=== PATIENT | male | born 1995 | race Caucasian/White ===

== ENCOUNTER 2023-10-29 07:33 | Outpatient (REF) | payer OTHER, SELFPAY ==
[2023-10-29 10:32] LABS: Alanine Aminotransferase 16 U/L (0-40); Albumin Level 4.3 g/dL (3.5-5.0); Alkaline Phosphatase 35 U/L (39-117); Anion Gap 15 (12-20); Aspartate Amino Transferase 17 U/L (5-37); Bilirubin Total 0.8 mg/dL (0.0-1.0); Blood Urea Nitrogen 10 mg/dL (9-16); Calcium 9.2 mg/dL (8.4-10.2); Carbon Dioxide 24 mmol/L (22-29); Chloride 107 mmol/L (96-108); Estimated Glomerular Filt Rate > 60; Glucose Fasting 82 mg/dL (60-99); Potassium 3.7 mmol/L (3.3-5.1); Sodium 142 mmol/L (135-145)
== END 2023-10-29 07:34 | disposition home or self-care (01) ==
LOC: HO.LAB 07:33
PROVIDERS: PCP Physician Assistant; Visit Provider Physician Assistant
DX: Z13.1 Encounter for screening for diabetes mellitus (principal)
CPT/HCPCS: 36415; 80053

== ENCOUNTER 2024-06-12 09:38 | Outpatient (REF) | payer MEDICAID, SELFPAY ==
[2024-06-12 11:41] LABS: Alanine Aminotransferase 19 U/L (0-40); Albumin Level 4.2 g/dL (3.5-5.0); Alkaline Phosphatase 38 U/L (39-117); Aspartate Amino Transferase 15 U/L (5-37); Bilirubin Direct 0.2 mg/dL (0.0-0.5); Bilirubin Total 0.5 mg/dL (0.0-1.0); Total Protein 6.9 g/dL (6.5-8.0)
[2024-06-12 11:56] LABS: HBS Num1 45.43 mIU/mL (0-7.99); HBc Num1 0.19 S/CO (0.00-0.79); HBsAGNum1 0.32 S/CO (0.00-0.99); Hepatitis B Core Antibody Nonreactive (Nonreactive); Hepatitis B Surface Antigen Negative (Negative); ~Hepatitis B Surface Antibody REACTIVE (Nonreactive)
[2024-06-12 11:57] LABS: Hepatitis A Antibody IgG REACTIVE (Nonreactive); ~Hepatitis A Antibody IgG 8.79 S/CO (0.00-0.99)
== END 2024-06-12 09:39 | disposition home or self-care (01) ==
LOC: HO.HHCL 09:38
PROVIDERS: Visit Provider Nurse Practitioner Primary Care
DX: Z00.00 Encounter for general adult medical examination without abnormal findings (principal); Z11.3 Encounter for screening for infections with a predominantly sexual mode of transmission
CPT/HCPCS: 36415; 80076; 86704; 86706; 86708; 87340

== ENCOUNTER 2024-06-18 09:24 | Outpatient (REF) | payer MEDICAID, SELFPAY ==
[2024-06-18 13:14] LABS: Syphilis Screen Nonreactive (Nonreactive)
[2024-06-18 13:37] LABS: ~HepC Num1 0.12 S/CO (0.00-0.79); ~Hepatitis C Antibody Nonreactive (Nonreactive)
[2024-06-20 08:14] LABS: HIV RNA PCR Qn Copies NOT DETECTED copies/mL (NOT DETECTED); HIV RNA PCR Qn Log Copies NOT DETECTED (NOT DETECTED)
== END 2024-06-18 09:25 | disposition home or self-care (01) ==
LOC: HO.HHCL 09:24
PROVIDERS: Visit Provider Nurse Practitioner Primary Care
DX: Z79.899 Other long term (current) drug therapy (principal)
CPT/HCPCS: 36415; 86780; 86803; 87536

== ENCOUNTER 2024-07-20 09:43 | Outpatient (REF) | payer MEDICAID, SELFPAY ==
[2024-07-23 14:18] LABS: HIV RNA PCR Qn Copies NOT DETECTED copies/mL (NOT DETECTED); HIV RNA PCR Qn Log Copies NOT DETECTED (NOT DETECTED)
== END 2024-07-20 09:44 | disposition home or self-care (01) ==
LOC: HO.CHCLDS 09:43
PROVIDERS: Visit Provider Nurse Practitioner Primary Care
DX: Z11.4 Encounter for screening for human immunodeficiency virus [HIV] (principal); Z79.899 Other long term (current) drug therapy
CPT/HCPCS: 36415; 87536

== ENCOUNTER 2024-09-14 08:10 | Outpatient (REF) | payer MEDICAID, SELFPAY ==
[2024-09-14 11:31] LABS: Albumin Level 4.5 g/dL (3.5-5.0); Anion Gap 12 (12-20); Aspartate Amino Transferase 22 U/L (5-37); Bilirubin Total 0.5 mg/dL (0.0-1.0); Blood Urea Nitrogen 22 mg/dL (9-16); Calcium 9.4 mg/dL (8.4-10.2); Carbon Dioxide 26 mmol/L (22-29); Chloride 106 mmol/L (96-108); Cholesterol 190 mg/dL (<200); Estimated Glomerular Filt Rate > 60; Glucose Random 95 mg/dL (60-115); HDL Cholesterol 50 mg/dL (>40); LDL Cholesterol Calculated 127 mg/dL (<100); Potassium 4.1 mmol/L (3.3-5.1); Sodium 140 mmol/L (135-145); Total Protein 7.5 g/dL (6.5-8.0); Triglycerides 69 mg/dL (<150)
[2024-09-14 11:33] LABS: Estimated Average Glucose 103 mg/dL; Hemoglobin A1C 120.7077 umol/L; Hemoglobin A1c % 5.2 % (<6.0); Total Hemoglobin (HGBA1C) 3566.0594 umol/L
[2024-09-14 11:45] LABS: HIV AB/AG Nonreactive (Nonreactive); HIV Num 1 0.07 S/CO (0.00-0.99)
[2024-09-14 12:14] LABS: Alanine Aminotransferase 25 U/L (0-40); Alkaline Phosphatase 42 U/L (39-117)
[2024-09-16 07:08] LABS: HIV RNA PCR Qn Copies NOT DETECTED copies/mL (NOT DETECTED); HIV RNA PCR Qn Log Copies NOT DETECTED (NOT DETECTED)
== END 2024-09-14 08:11 | disposition home or self-care (01) ==
LOC: HO.HHCL 08:10
PROVIDERS: Visit Provider Nurse Practitioner Primary Care
DX: Z00.00 Encounter for general adult medical examination without abnormal findings (principal); Z13.220 Encounter for screening for lipoid disorders; Z13.1 Encounter for screening for diabetes mellitus; Z79.899 Other long term (current) drug therapy
CPT/HCPCS: 36415; 80053; 80061; 83036; 87389; 87536

== ENCOUNTER 2024-10-10 14:08 | Outpatient (REF) | payer MEDICAID, SELFPAY ==
[2024-10-11 08:10] LABS: Syphilis Screen Nonreactive (Nonreactive)
== END 2024-10-10 14:09 | disposition home or self-care (01) ==
LOC: HO.HHCL 14:08
PROVIDERS: Visit Provider Nurse Practitioner Primary Care
DX: Z79.899 Other long term (current) drug therapy (principal)
CPT/HCPCS: 36415; 86780; 87536

== ENCOUNTER 2024-11-12 09:17 | Outpatient (REF) | payer MEDICAID, SELFPAY ==
--- OUTSIDE RECORDS SUMMARY | 2024-11-12 09:53 | XMS_ITS | Encounter Summary ---
Author Organization [employer] Address [address] [place] [address] Care Team Providers Care Marina Dry Dock Manager Name Role Phone Autumn Lainez HILARY Primary Care Provider [phone] Reason for Visit * Reason Comments [facility] Recovery Supports Encounter Details Date Type Department Care Team ([facility] st Contact Info) Description 11/06/2024 Patient Outreach [facility] MEDICINE [address] [place], [place] [phone] Xander Arteaga [address] [place] [address] Recovery Supports Social History Tobacco Use Types Packs/Day Years Used Date Smoking Tobacco: Never Alcohol Answer Date Recorded Frequency of Alcohol Consumption Not on file 06/14/2024 Average Number of Drinks Not on file 024 Frequency of Binge Drinking Not on file 06/03 Score 0 06/14/2024 Depression Answer Date Recorded Patient Health Questionnaire-9 Score 16 08/21/2024 Patient Health Questionnaire-9 Score 16 08/21/2024 Last PHQ-9: Questionnaire Data Not on file 1 10/21/2023 Housing Stability Answer Date Recorded What is your housing situation today? I have housing today, but I am worried about losing housing in the future 06/08/[address] you li ve. Do you have problems with any of the following? I am not sure 06/08/2024 Food Insecurity Answer Date Recorded Within the past 12 months, y ou worried that your food would run out before you got money to buy more: Never True 2023 Within the past 12 months,th e food you bought just didn't last and you didn't have enough money to get more: Sometimes True 06/08/2024 Transportation Answer Date Recorded In the past 12 months, has l ack of transportation kept you from medical appts, meetings, work or from getting things needed for daily living? No 06/08/2024 Utilities Answer Date Recorded In the past 12 months, has t he electric, gas, oil or water company threatened to shut off services in your home? No 06/08/2024 Depression Answer Date Recorded Patient Health Questionnaire-2 Score 1 08/21/2024 Internet Access Answer Date Recorded Internet Access Q1 Yes 06/08/2024 Internet Access Q2 Not on file 06/08/2024 Sex and Gender Information Value Date Recorded Sex Assigned at Male 08/02/2022 10:16 AM EDT Legal Sex Male 10:16 AM EDT Gender Identity Male 11/09/2023 9:27 AM EST Sexual Orientation Straight 11/09/2023 9: 27 AM EST documented as of this encounter Progress Notes * Xander Arteaga - 11/06/2024 4:27 PM EST I met with Al today. Setting: in person at [facility] Recovery Wellness Goals worked on: Social Stability Action taken/next steps: Attended recovery support group Additional comments: Participant attended a group session centered on recovery topics, where members engaged in open discussion and offered mutual support Xander Arteaga documented in this encounter Plan of Treatment Upcoming Encounters Date Type Department Care Team (Late st Contact Info) Description 11/30/2024 1:00 PM EST Office Visit [facility] MEDICINE [address] [place] [phone] Autumn Lainez ANP [address] [place] [phone] 12/27/2024 9:00 AM EDT Clinical Support [facility] MEDICINE [address] [place] [phone] Alissa Light, RODO [address] [place] [address] documented as of this encounter Visit Diagnoses Not on filedocumented in this encounter Additional Health Concerns Assessment Noted Time PHQ-9 Depression Total Score: 16 024 2:08 PM EST documented as of this encounter Care Teams Marina Dry Dock Manager Relationship Specialty Start Date End Date Autumn Lainez ANP [address] [place] [address] PCP - General Family Medicine 08/17/24 documented as of this encounter
--- OUTSIDE RECORDS SUMMARY | 2024-11-12 09:53 | XMS_ITS | Encounter Summary ---
Author Organization [employer] Address [address] [place] [address] Care Team Providers Care Human Resources Training Manager Name Role Phone Autumn Lainez HILARY Primary Care Provider [phone] Reason for Visit * Reason Comments [facility] Recovery Supports Encounter Details Date Type Department Care Team (Late st Contact Info) Description 10/15/2024 Patient Outreach [facility] MEDICINE [address] [place] [address] Jasvir Morgan Recovery Supports Social History Tobacco Use Types [...] as of this encounter Progress Notes * Jasvir Morgan - 10/15/2024 3:37 PM EST I met with Al today. Setting: in person at [facility] Recovery Wellness Goals worked on: Social Stability Action taken/next steps: Offered person centered recovery support and Attended alcohol and drug free activity Additional comments: Today, the participant Al Putnam was at the center, interacting with other participants while having coffee and snacks. Jasvir Morgan documented in this encounter Plan of Treatment Upcoming Encounters Date Type Department Care Team (Late st Contact Info) Description 11/30/2024 1:00 PM EST Office Visit [facility] MEDICINE [address] [place] [phone] Autumn Lainez ANP [address] [place] [address] 12/27/2024 9:00 AM EDT Clinical Support [facility] MEDICINE [address] [place] [phone] Alissa Light, RODO [address] [place] [address] documented as of this encounter Visit Diagnoses Not on filedocumented in this encounter Additional Health Concerns Assessment Noted Time PHQ-9 Depression Total Score: 16 024 2:08 PM EST documented as of this encounter Care Teams Human Resources Training Manager Relationship Specialty Start Date End Date Autumn Lainez ANP [address] [place] [address] PCP - General Family Medicine 08/17/24 documented as of this encounter
--- OUTSIDE RECORDS SUMMARY | 2024-11-12 09:53 | XMS_ITS | Clinical Summary ---
Author Organization [employer] Address [address] [place] [address] [address] [place] [address] Care Team Providers Care Batch Tester Name Role Phone Autumn Lainez HILARY Primary Care Provider [phone] Allergies No known active allergies Medications * This document contains information received from the source organization and may not represent a complete record from that organization. Cabotegravir ER 600 MG/3ML Suspension Extended ReleaseIndicati ons:On pre-exposure prophylaxis for HIV Inject 600 mg into the muscle See administration instructions. Ventrogluteal Every other month 3 mL 5 07/20/20 24 Active ARIPiprazole (Abilify) 10 MG tabletIndicatio ns:Bipolar affective disorder in remission (CMS/HCC) Take 1 tablet (10 mg) by mouth Once per day. 30 tablet 1 10/09/19 25 025 Active hydrOXYzine pamoate (Vistaril) 25 MG capsuleIndicati ons:ANDRES (generalized anxiety disorder) Take 1 capsule (25 mg) by mouth if needed in the morning and at bedtime for anxiety. May take the 2 caps at bedtime. 60 capsule 1 10/09/19 25 025 Active Hospital, Clinic, or Other Facility Administered Medication Ordered Dose Route Frequency Start Date End Date Status Cabotegravir ER Suspension Extended Release 600 mgIndications:On pre-exposure prophylaxis for HIV 600 mg IM Once 11/12/2024 11/12/2024 Ended Active Problems Problem Noted Date Diagnosed Date parveen 08/23/2024 Assessment & Plan (08/23/2024 1:18 PM EST): Has a longitudinal ridges on right thumb. 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 -see image in chart. -recommended monitoring for any skin changes surrounding the thumb to return for reevaluation. . Bipolar affective disorder in remission 08/17/20 Recurrent major depressive disorder, in partial remission 05/16/2024 ANDRES (generalized anxiety disorder) 05/16/2024 History of substance use disorder 05/16/2024 Stress 04/24/2024 Encounters * This document contains information received from the source organization and may not represent a complete record from that organization. Date Type Department Care Team Description 11/12/2024 9:00 AM EST Clinical Support [facility] [place] [address] Alissa Light, RODO On pre-exposure prophylaxis for HIV 11/12/2024 Travel 11/06/2024 1:45 PM EST Office Visit [facility] [place] [address] Rosario Sanchez MD ANDRES (generalized anxiety disorder) (Primary Dx); Bipolar affective disorder in remission (CMS/HCC) 11/06/2024 Patient Outreach [facility] [place] [address] Xander Arteaga Recovery Supports 11/06/2024 Travel 10/30/2024 Patient Outreach [facility] [place] [address] Timur Prince Recovery Supports 10/29/2024 Patient Outreach [address] [address] Xander Arteaga Recovery Supports 10/29/2024 Patient Outreach [address] [address] Autumn Lainez ANP Care Coordination ([facility] Sydnee Guillory telephone call outreach) 10/26/2024 Patient Outreach [facility] [place] [address] Sammy Tyson Recovery Supports 10/23/2024 2:15 PM EST Office Visit [facility] [place] [address] Rosario Sanchez MD Bipolar affective disorder in remission (CMS/HCC) (Primary Dx); Stress 10/23/2024 Travel 10/16/2024 Patient Outreach [facility] [place] [address] Xander Arteaga RC Recovery Supports 10/15/2024 Patient Outreach [facility] [address] [place] [address] Jasvir Morgan Recovery Supports 10/12/2024 Patient Outreach [facility] [address] [place] [address] Autumn Lainez ANP Care Coordination ([facility] Sydneejody Lanierz telephone all outreach) 10/10/2024 Orders Only [facility] [place] [address] Autumn Lainez ANP 10/09/2024 2:15 PM EST Office Visit [facility] [place] [address] Rosario Sanchez MD Bipolar affective disorder in remission (CMS/[facility]) (Primary Dx) 10/09/2024 Patient Outreach [facility] [place] [address] Timur Prince RC Support Groups 10/09/2024 Travel 10/08/2024 Patient Outreach [facility] [place] [address] Jose Álvarez Recovery Supports 10/05/2024 Patient Outreach [facility] [place] [address] Jose Álvarez Recovery Supports 10/04/2024 10:00 AM EST Office Visit [facility] [place] [address] Socorro Rasmussen MD Stress (Primary Dx) 10/04/2024 Patient Outreach [facility] [place] [address] Xander Arteaga RC Recovery Supports 10/04/2024 Patient Outreach [facility] [place] [address] Jose Álvarez Recovery Supports 10/04/2024 Travel 10/02/2024 Patient Outreach [facility] [address] [place] [address] Jasvir Morgan Recovery Supports 10/01/2024 Patient Outreach [facility] [address] [place] [address] Jasvir Morgan RC Recovery Supports 10/01/2024 Telephone [facility] [place] [address] Delmy Mensah MA November10/01/2024 Patient Outreach [facility] [address] [facility] [place] [address] Sammy Tyson RC Recovery Supports 09/28/2024 [address]reach [address] [place] [address] Sammy Tyson RC Recovery Supports 09/27/2024 Patient Outreach [address] [place] [address] Autumn Lainez ANP Care Coordination ([facility] Sydnee Guillory telephone call outreach) 09/21/2024 Telephone [facility] [place] [address] Garcia Meza RN 09/20/2024 Patient Outreach [address] [place] [address] Jose Álvarez RC Recovery Supports 09/19/2024 9:00 AM EST Office Visit [facility] [place] [address] Shawn Calzada MD Alcohol use disorder (Primary Dx); Cocaine use disorder (CMS/HCC) 09/19/2024 Travel 09/18/2024 Patient Outreach [facility] [place] [address] Xander Arteaga RC Recovery Supports 09/18/2024 Patient Outreach [facility] [place] [address] Jasvir Morgan RC Recovery Supports 09/17/2024 9:45 AM EST Office Visit [facility] [place] [address] Socorro Rasmussen MD Stress (Primary Dx) 09/17/2024 Patient Outreach [address] [address] Jasvir Morgan RC Recovery Supports 09/17/2024 Travel 09/14/2024 9:00 AM EST Clinical Support [facility] [place] [address] Garcia Meza, RN On pre-exposure prophylaxis for HIV 09/14/2024 Patient Outreach [facility] [address] Timur Prince 09/14/2024 Travel 09/13/2024 Patient Outreach [facility] [place] [address] Sammy Tyson Recovery Supports 09/12/2024 9:00 AM EST Office Visit [facility] [place] [address] Shawn Calzada MD Cocaine use disorder (CMS/HCC) (Primary Dx); Alcohol use disorder 09/12/2024 Travel 09/11/2024 [address] Outreach [address] [place] [address] Sammy Tyson Recovery Supports 09/11/2024 Patient Outreach [address] [address] Jose Álvarez RC Recovery Supports 09/10/2024 Patient Outreach [address] [address] Xander Arteaga Recovery Supports 09/07/2024 Patient Outreach [address] [address] Sammy Tyson Recovery Supports 09/06/2024 9:00 AM EST Office Visit [facility] [place] [address] Socorro Rasmussen MD Stress (Primary Dx) 09/06/2024 Refill [facility] [place] [address] Autumn Lainez ANP On pre-exposure prophylaxis for HIV 09/06/2024 Patient Outreach [address] [address] Autumn Lainez ANP Care Coordination ([facility] Sydnee Guillory telephone call outreach ) 09/06/2024 Patient Outreach [address] [address] Sammy Tyson 09/05/2024 9:00 AM EST Clinical Support [address] [address] Nicolle Mtz, RODO History of substance use disorder 09/05/2024 Patient Outreach [address] [address] Timur Prince 09/05/2024 Travel 09/04/2024 1:45 PM EST Office Visit [address] [address] Rosario Sanchez MD Stress (Primary Dx) 09/04/2024 Travel 09/04/2024 Patient Outreach [facility] [address] [place] [address] Xander Arteaga 09/03/2024 Patient Outreach [address] [address] Jasvir Morgan 08/29/2024 9:00 AM EST Clinical Support [address] [address] Liudmila Nielsen, RODO History of substance use disorder 08/29/2024 Travel 08/28/2024 Patient Outreach [address] [address] Xander Arteaga 08/24/2024 Patient Outreach [address] [address] Jasvir Mogran 08/23/2024 1:20 PM EST Office Visit [facility] [address] [place] [address] Kenya Fry MD Melanonychia striata (Primary Dx) 08/23/2024 Patient Outreach [address] [address] Jose Álvarez 08/22/2024 9:00 AM EST Office Visit [address] [address] Shawn Calzada MD Alcohol use disorder (Primary Dx); Cocaine use disorder (CMS/HCC) 08/22/2024 Travel 08/21/2024 Patient Outreach [address] [address] Timur Prince 08/20/2024 Patient Outreach [facility] [address] [place] [address] Jasvir Morgan 08/20/2024 Patient Outreach [facility] [place] [address] Xander Arteaga 08/17/2024 10:15 AM EST Office [address] [place] [address] Autumn Lainez ANP On pre-exposure prophylaxis for HIV (Primary Dx); Bipolar affective disorder in remission (CMS/HCC); Recurrent major depressive disorder, in partial remission (CMS/HCC); ANDRES (generalized anxiety disorder); History of substance use disorder; Healthcare maintenance; Lipid screening; Screening for diabetes mellitus 08/17/2024 Patient Outreach [address] [place] [address] Jose Álvarez 08/17/2024 Travel 08/16/2024 9:00 AM EST Office Visit [address] [place] [address] Socorro Rasmussen MD Stress (Primary Dx) 08/16/2024 Patient Outreach [address] [place] [address] Jasvir Morgan 08/16/2024 Travel 08/15/2024 9:00 AM EST Office Visit [facility] [place] [address] Shawn Calzada MD Cocaine use disorder (CMS/HCC) (Primary Dx); Alcohol use disorder 08/15/2024 Patient Outreach [facility] [place] [address] Sydnee Guillory Care Coordination ([facility] Sydnee Guillory telephone call outreach ) 08/15/2024 Travel 08/14/2024 9:00 AM EST [address] [facility] [address] Socorro Rasmussen MD Stress (Primary Dx) 08/14/2024 Patient Outreach [address] [address] Timur Prince 08/14/2024 Travel 08/13/2024 9:00 AM EST Office Visit [address] [address] Socorro Rasmussen MD Stress (Primary Dx) 08/13/2024 Patient Outreach [facility] [address] [place] [address] Xander Arteaga 08/13/2024 Travel from Last 3 Months Immunizations Name Administration Dates Next Due DTP 10/02/1994, 4,1993,08/02 DTaP, 5 pertussis antigens 07/02/1998 HPV, Quadrivalent 08/20/2013,04/17/2013,02/15/20 13 Hep A, Adult 12/05/2015,06/07/2015 Hep A, ped/adol, 2 dose 04/03/2014 Hep B, Adolescent or Pediatric 1993,1992,1993 Hep B, adult 07/07/2015,06/07/2015 Hib (PRP-T) 06/02/1994, 4,1993,08/02 IPV 07/02/1998, 4,1993,08/02 Influenza injectable quadriv alent preservative free 11/22/2023,12/02/2020 Influenza, IIV3, injectable 07/28/2016,0 07/01/2009,11/28/2008,10/27,10/12/2006 Influenza, Split (incl. les fied surface antigen) 09/06/2011 Influenza, live, intranasal 06/03/2010 Influenza, seasonal, injecta ble, preservative free 06/28/2024 MMR 07/02/1998,06/02/1994 Meningococcal MCV4P ACYW-135 10/27/2007 Novel [id number], all formulations 10/29/2009 Pfizer Covid-19 Vaccine 12+ 06/28/2024, Pneumococcal Polysaccharide PPSV23 04/28/2018 TD (adult), 2 Lf tetanus tox oid, preservative free, adsorbed 03/25/2004 Tdap 05/09/2018,12/22/2015,12/10/2008 Varicella 12/10/2008,12/31/1997 Social History Tobacco Use Types Packs/Day Years Used Date Smoking Tobacco: Never Tobacco Cessation:Counseling Given: Not Answered Alcohol Answer Date Recorded Frequency of Alcohol Consumption Not on file 06/14/2024 Average Number of Drinks Not on file Frequency of Binge Drinking Not on file [...] Orientation Straight 11/09/2023 9: 27 AM EST Last Filed Vital Signs Vital Sign Reading Time Taken Comments Blood Pressure 116/80 08/23/2024 1:10 PM EST Pulse 71 08/23/2024 1:10 PM EST Temperature 37.4 ??C (99.4 ??F) 08/23/2024 1:10 PM ES T Respiratory Rate 18 08/23/2024 1:10 PM EST Oxygen Saturation 99% 08/17/2024 10:27 AM EST Inhaled Oxygen Concentration - - Weight 90.5 kg (199 lb 9.6 oz) 08/23/2024 1:10 P M EST Height - - Body Mass Index - - Plan of Treatment Upcoming Encounters Date Type Department Care Team (Late st Contact Info) Description 11/30/2024 1:00 PM EST Office Visit [facility] [address] [place] [address] Autumn Lainez, HILARY [address] [place] [address] 12/27/2024 9:00 AM EDT Clinical Support [facility] [address] [place] [address] Alissa Light, RN [address] [place] [address] Health Maintenance Due Date Last Done Comments Family Planning (PISQ) 02/29/2008 Pneumococcal Vaccine: Pediatrics (0 to 5 Years) and At-Risk Patients (6 to 49) Years) (2 of 2 - PCV) 04/28/2019 04/28/2018 Depression Monitoring (PHQ-9) 02/18/2025 08/21/2024, 08/21/2024 SDOH Screening 06/08/2025 06/08/2024 Alcohol/Substance Use Screening 06/14/2025 06/14/2024 Depression Screening 08/21/2025 08/21/2024, 08/21/20 24 Tobacco Screening 11/06/2025 11/06/2024 DTaP/Tdap/Td Vaccines (9 - Td or Tdap) 05/09/2028 05/09/2018, 12/22/2015, 12/10/2008, Additional history exists Zoster Vaccines (1 of 2) 2043 RSV Patients and Patients Aged 60 years or older (1 - 1-dose 75+ series) 02/29/2068 HIB Vaccines Completed 06/02/1994, 12/03, 1993, Additional history exists IPV Vaccines Completed 07/02/1998, 12/03, 1993, Additional history exists Meningococcal Vaccine Aged Out 10/27/2007 No bahman kenny eligible based on patient's age to complete this topic HPV Vaccines Completed 08/20/2013, 04/02, 02/14/2013 Hepatitis B Vaccines Completed 07/07/2015, 06/07/2015, 1993, Additional history exists Hepatitis A Vaccines Completed 12/05/2015, 06/07/2015, 04/03/2014 Hepatitis C Screening Completed 06/18/2024 COVID-19 Vaccine Completed 06/28/2024, 11/22/2023 Influenza Vaccine Completed 06/28/2024, , 12/02/2020, Additional history exists HIV Screening Completed 10/10/2024, 09/02, 09/14/2024, Additional history exists RSV under 20 months Aged Out No longe r eligible based on patient's age to complete this topic Rotavirus Vaccines Aged Out No longer eligible based on patient's age to complete this topic Procedures Procedure Name Priority Date/Time Associated Diagnosis Comments POCT RAPID HIV SCREENING Routine 11/12/2024 9:51 AM EST On pre-exposure prophylaxis for HIV HIV 1 RNA, QUANTITATIVE REAL TIME PCR Routine 10/10/2024 2:10 PM EST SYPHILIS SCREEN Routine 10/10/2024 2:10 PM EST POCT RAPID HIV SCREENING Routine 09/14/2024 8:57 AM EST On pre-exposure prophylaxis for HIV HIV 1 RNA, QUANTITATIVE REAL TIME PCR Routine 09/14/2024 8:12 AM EST On pre-exposure prophylaxis for HIV HIV 1/2 ANTIGEN/ANTIBODY, FOURTH GENERATION W/RFL Routine 09/14/2024 8:12 AM EST On pre-exposure prophylaxis for HIV HEMOGLOBIN A1C Routine 09/14/2024 8:12 AM EST Screening for diabetes mellitus COMPREHENSIVE METABOLIC PANEL Routine 09/14/2024 8:12 AM EST Healthcare maintenance LIPID PANEL, STANDARD Routine 09/14/2024 8:12 AM EST Lipid screening CHLAMYDIA/GONORRHEA - URINE ([facility]) Routine 09/14/2024 HEPATITIS C AB W/REFL TO HCV RNA, QN, PCR Routine 06/18/2024 9:30 AM EDT from Last 3 Months or Most Recently Relevant to Health Maintenance Results * POCT RAPID HIV SCREENING (11/12/2024 9:51 AM EST) Only the most recent of2 resultswithin the time period is included. Blood 11/12/2024 9:51 AM EST Narrative Alissa Light RN - 11/12/2024 9:51 AM EST negative Shawn Calzada MD POINT OF CARE TEST ENTER/EDIT OR DERABLES Final Result * Syphilis Screen (10/10/2024 2:10 PM EST) Syphilis Screen Nonreactive Nonreactive [facility] 10/10/2024 2:10 PM EST 10/10/2024 4:04 PM EST Autumn RICHARD LAB BLOOD ORDERABLES Final Resul t [facility] [address] [place] [address] [phone] * HIV-1 RNA, Quantitative, Real-Time PCR (10/10/2024 2:10 PM EST) Only the most recent of2 resultswithin the time period is included. HIV RNA PCR Qn Copies TNP copies/mL [facility] Comment:TEST NOT PERFORMEDNo suitable specimen received.Please review the testrequirements [email or web address] TEST WAS PERFORMED AT:[employer] [place] [phone] MILLER MD HIV RNA PCR Qn Log Copies TNP [facility] 10/10/2024 2:10 PM EST 10/10/2024 4:04 PM EST Autumn Lainez [facility] LAB BLOOD ORDERABLES Final Resul t Performing Organization Address [facility]/ZIP Co de Phone Number [facility] [address] [place] [address] [phone] * HIV-1/2 Antigen and Antibodies, Fourth Generation, with Reflexes (09/14/2024 8:12 AM EST) HIV AB/AG Nonreactive Nonreactive [facility] Comment:HIV-1 p24 Ag and/or HIV-1/HIV-2 Ab not detected.A test result that is nonreactive does not exclude thepossibility of exposure to or infection with HIV-1 and/orHIV-2. Nonreactive results in this assay for individualswith prior exposure to HIV-1 and/or HIV-2 may be due toantigen and antibody levels that are below the limit ofdetection of this assay.[facility] HIV Ag/Ab Combo assay result andsupplemental assay results should be interpreted inconjunction with the patient's clinical presentation,history and other laboratory results. If the results areinconsistent with clinical evidence, additional testing issuggested to confirm the result. Blood Venous blood specimen / Unknown 09/14/2024 8:12 AM EST 09/14/2024 11:04 AM EST Autumn Lainez [facility] LAB BLOOD ORDERABLES Final Resul t [facility] [address] [place] [address] [phone] * Hemoglobin A1c (09/14/2024 8:12 AM EST) Hemoglobin A1c 5.2 <6.0 % [facility] Comment:Hemoglobin A1C Refer ence Range Adults: 4.8 - 6.0 % Non diabetic: < 6.0 % Goal: < 7.0 %Additional Action Suggested: > 8.0 %Note: Hemoglobin A1c results are invalid for patients with abnormal amounts of HbF. Blood transfusions may impact the HbA1c concentration in the patient sample. Estimated Average Glucose 103 mg/dL [facility] Comment:eAG = Estimated ave rage glucose which is %A1C expressed asaverage glucose, using the formula of the [id number] Glucose study (ADAG), Diabetes Care, Vol.31,#8,2007 Blood Venous blood specimen / Unknown 09/14/2024 8:12 AM EST 09/14/2024 11:04 AM EST Autumn Lainez ANP LAB BLOOD ORDERABLES Final Resul t [facility] [address] [place] [phone] * (ABNORMAL) Lipid Panel, Standard (09/14/2024 8:12 AM EST) Triglycerides 69 <150 mg/dL [facility] Comment:Desirable Triglyceri de: less than 150 mg/dLBorderline High Triglyceride 150-199 mg/dLHigh Triglyceride: 200-499 mg/dLVery High Triglyceride: greater than or equal to 5OO mg/dL Cholesterol 190 <200 mg/dL [facility] Comment:Desirable Cholestero l: less than 200 mg/dLBorderline High Cholesterol: 200-239 mg/dLHigh Cholesterol: greater than 239 mg/dL LDL Cholesterol Calculated 127(H) <100 mg/dL [facility] Comment:Desirable LDL: less than 100 mg/dLNear Optimal/Above Optimal LDL: 110- 129 mg/dLBorderline High LDL: 130-159 mg/dLHigh LDL: 160-189 mg/dLVery High LDL: greater than or equal to 190 mg/dL HDL Cholesterol 50 >40 mg/dL [facility] Comment:Desirable HDL: great er than 40 mg/dL Note: This HDL assay may give artificially low results in patients with liver disease. Blood Venous blood specimen / Unknown 09/14/2024 8:12 AM EST 09/14/2024 11:04 AM EST us Autumn Lainez ANP LAB BLOOD ORDERABLES Final Resul t [facility] [address] [place] [address] [phone] * (ABNORMAL) Comprehensive Metabolic Panel (09/14/2024 8:12 AM EST) Sodium 140 135 - 145 mmol/L [facility] Potassium 4.1 3.3 - 5.1 mmol/L [facility] Chloride 106 96 - 108 mmol/L [facility] Carbon Dioxide 26 22 - 29 mmol/L [facility] Anion Gap 12 12 - 20 [facility] Urea Nitrogen (BUN) 22(H) 9 - 16 mg/dL [facility] Creatinine, Serum 0.84 0.5 - 1.4 mg/dL [facility] Estimated Glomerular Filt Rate >60 [facility] Comment:Chronic Kidney Disea se: Estimated GFR < 60 mL/min/[id number] Kidney Disease: Estimated GFR < 15 mL/min/1.73m2 Glucose 95 60 - 115 mg/dL [facility] Calcium 9.4 8.4 - 10.2 mg/dL [facility] Bilirubin, Total 0.5 0.0 - 1.0 mg/dL [facility] Aspartate Amino Transferase 22 5 - 37 U/L [facility] Alanine Aminotransferase 25 0 - 40 U/L [facility] Total Protein 7.5 6.5 - 8.0 g/dL [facility] Albumin Level 4.5 3.5 - 5.0 g/dL [facility] Alkaline Phosphatase 42 39 - 117 U/L [facility] Blood Venous blood specimen / Unknown 09/14/2024 8:12 AM EST 09/14/2024 11:04 AM EST Autumn Lainez ANP LAB BLOOD ORDERABLES Final Resul t Performing Organization Address [facility]/ZIP Co de Phone Number [facility] [address] [place] [address] [phone] * Chlamydia/Gonorrhea, Urine ([facility]) (09/14/2024) Chlamydia, Urine Negative Negative, Indeterminate, None Detected, Invalid, Specimen unsatisfactory for evaluation, Weakly Positive Gonorrhea, Urine Negative Negative, Indeterminate, None Detected, Invalid, Specimen unsatisfactory for evaluation, Weakly Positive Urine 09/14/2024 [facility] Harjit HERNANDEZ LAB URINE ORDERABLES Echo l Result * Hepatitis C Antibody with Reflex to HCV, RNA, Quantitative, Real-Time PCR (06/18/2024 9:30 AM EDT) Hepatitis C Antibody Nonreactive Nonreactive [facility] Comment:Antibodies to HCV no t detected; does not exclude early acuteHCV infection. 06/18/2024 9:30 AM EDT 06/18/2024 11:33 AM EDT [facility] HILARY LAB BLOOD ORDERABLES Final Resul t [facility] [address] [place] [phone] from Last 3 Months or Most Recently Relevant to Health Maintenance Insurance [facility] STANDARD Care Teams Batch Tester Relationship Specialty Start Date End Date Autumn Lainez ANP [address] [place] [phone] PCP - General Family Medicine 08/17/24
--- OUTSIDE RECORDS SUMMARY | 2024-11-12 09:53 | XMS_ITS | Encounter Summary ---
Author Organization [employer] Address 75 [facility] [address] [place] [address] Care Team Providers Care Environmental Sciences Professor Name Role Phone Autumn Lainez HILARY Primary Care Provider [phone] Encounter Details Date Type Department Care Team ([facility] st Contact Info) Description 06/19/2024 Community Care Management [facility] [address] [place] [address] Xander Arteaga [address] [place] [address] Social History Tobacco Use Types Packs/Day Years Used Date Smoking Tobacco: Never Alcohol Answer Date Recorded Frequency of Alcohol Consumption Not on file 06/14/2024 Average Number of Drinks Not on file 024 Frequency of Binge Drinking Not on file 06/03 Score 0 06/14/2024 Depression Answer Date Recorded Patient Health Questionnaire-9 Score 6 05/16/2024 Patient Health Questionnaire-9 Score 6 05/16/2024 Last PHQ-9: Questionnaire Data Not on file 0 05/16/2024 Housing Stability Answer Date Recorded What is [...] Answer Date Recorded Patient Health Questionnaire-2 Score 2 05/16/2024 Internet Access Answer Date Recorded Internet Access Q1 Yes 06/08/2024 Internet Access Q2 Not on file 06/08/2024 Sex and Gender Information Value Date Recorded Sex Assigned at Male 08/02/2022 10:16 AM EDT Legal Sex Male 10:16 AM EDT Gender Identity Male 11/09/2023 9:27 AM EST Sexual Orientation Straight 11/09/2023 9: 27 AM EST documented as of this encounter Plan of Treatment Upcoming Encounters Date Type Department Care Team (Late st Contact Info) Description 11/30/2024 1:00 PM EST Office Visit [facility] [address] [place] [address] Autumn Lainez ANP [address] [place] [address] 12/27/2024 9:00 AM EDT Clinical Support [address] [address] Alissa Light, RN [address] [place] [address] documented as of this encounter Visit Diagnoses Not on filedocumented in this encounter Additional Health Concerns Assessment Noted Time PHQ-9 Depression Total Score: 6 05/16/20 24 2:59 PM EDT documented as of this encounter Care Teams Environmental Sciences Professor Relationship Specialty Start Date End Date Autumn Lainez ANP [address] [place] [address] PCP - General Family Medicine 08/17/24 documented as of this encounter
--- OUTSIDE RECORDS SUMMARY | 2024-11-12 09:53 | XMS_ITS | Encounter Summary ---
Author Organization [facility] Address [address] [place] [address] Phone Care Team Providers Care Card Runner Name Role Phone Melinda Lombardo MD Primary Care Provider Encounter Details Date Type Department Care Team (Late st Contact Info) Description 05/19/2017 Conversion Encounter [facility] [address] [place] [address] Social History Tobacco Use Types Packs/Day Years Used Date Smoking Tobacco: Never Comments:Never smoker Sex and Gender Information Value Date Recorded Sex Assigned at Not on file Legal Sex Male 4:46 PM EDT Gender Identity Not on file Sexual Orientation Not on file documented as of this encounter Plan of Treatment Not on file documented as of this encounter Visit Diagnoses Not on filedocumented in this encounter Care Teams Card Runner Relationship Specialty Start Date End Date Melinda Lombardo MD [address] [place] [address] PCP - General 05/13/17 11/18/22 documented as of this encounter
--- OUTSIDE RECORDS SUMMARY | 2024-11-12 09:53 | XMS_ITS | Encounter Summary ---
Author Organization [employer] Address 75 [facility] 7t [place] [address] Care Team Providers Care Costume Seamstress Name Role Phone Autumn Lainez HILARY Primary Care Provider [phone] Encounter Details Date Type Department Care Team (Latest Contact Info) Description 10/23/2024 Travel Social History Tobacco Use Types Packs/Day Years [...] Description 11/30/2024 1:00 PM EST Office Visit [facility] [address] [place] [address] Autumn Lainez ANP [address] [place] [address] 12/27/2024 9:00 AM EDT Clinical Support [facility] [address] [place] [address] Alissa Light, RODO [address] [place] [address] documented as of this encounter Visit Diagnoses Not on filedocumented in this encounter Additional Health Concerns Assessment Noted Time PHQ-9 Depression Total Score: 16 024 2:08 PM EST documented as of this encounter Care Teams Costume Seamstress Relationship Specialty Start Date End Date Autumn Lainez ANP [address] [place] [address] PCP - General Family Medicine 08/17/24 documented as of this encounter
--- OUTSIDE RECORDS SUMMARY | 2024-11-12 09:53 | XMS_ITS | Encounter Summary ---
Author Organization [employer] Address 75 [facility] 7[address] [place] [address] Care Team Providers Care Employee Benefits Attorney Name Role Phone Autumn Lainez HILARY Primary Care Provider [phone] Encounter Details Date Type Department Care Team (Latest Contact Info) Description 11/12/2024 9:00 AM EST Clinical Support [facility] [address] [place] [address] Jordan Cagle, RODO [address] [place] [address] On pre-exposure prophylaxis for HIV Social History Tobacco Use Types Packs/Day Years [...] as of this encounter Progress Notes * Jordan Cagle RN - 11/12/2024 9:00 AM EST Pt here for 4th injection of APRETUDE (600-mg cabotegravir). Saw PCP 08/17/24 and did fasting labs today which included HIV RNA. Reviewed and confirmed: Negative 4th generation HIV-1 test within last 7 days. HIV-1 RNA assay test (HIV VL) negative or pending at time of visit. No previous hypersensitivity reaction to cabotegravir. Reviewed medication list; pt is not taking carbamazepine, oxcarbazepine, phenobarbital, phenytoin, rifampin, or rifapentine. Pt weighs over 77 lbs. Pt does not have gluteal implants. Pt is not (or has consulted with a provider). Pt does not have any symptoms of acute HIV (fever, fatigue, myalgia, sore throat, rash). LFTs done within last 6 months, or included in initial labs today. Last LFTs: 11/12/24 Hep B status (if stopping Descovy or Truvada): immune test [if applicable]: N/A Patient questions answered. Reviewed importance of attending lab and injection appointments. Reviewed that medication is an IM injection in gluteal muscle and cannot be taken out once it is given. 600 mg cabotegravir injected IM into L gluteal muscle. Pt advised to not rub the injection sites. Pt tolerated well, advised to remain 20 mins after injection, no adverse reaction noted. Pt given phone number for RN and PrEP navigator if they have any questions. Teaching points reviewed: Stop Descovy or Truvada if taking. Importance of adherence to injection and lab monitoring schedule: once monthly for 2 mos, then every 2 mos afterward. Importance of contacting provider/RN for sooner HIV testing: When recent exposures to HIV-1 are suspected or clinical symptoms consistent with acute HIV-1 (eg, fever, fatigue, myalgia, sore throat, rash) are present Upon diagnosis of any other STI Reviewed long ???tail?? effect of medication. Apretude (IM cabotegravir) can be present in the body for up to 12 months after an injection, though not at a level to protect from HIV acquisition. There is a risk that if someone did acquire HIV-1 before, during, or within 12 mos of discontinuation of Apretude, that strain of HIV-1 could be resistant if they are not current on dosing or are not on a different form of PrEP, such as Truvada or Descovy. Counseled on site reaction and side effects (abdominal pain, jaundice, rash, depression etc.) that should be brought to provider attention. PrEP does not protect against STIs other than HIV, or other blood-borne pathogens. If you plan to miss a dose by more than 7 days, let us know as soon as possible so we can plan for this. You can take oral cabotegravir for up to 2 months to cover for 1 missed injection. If you zina dose by accident, contact us as soon as you can so we can make a plan to re-start PrEP - if desired and appropriate. Plan: PrEP Navigator check - in 1 week Return for HIV, [if applicable] testing in 1 month or 2 months. Ideally this would be less than 7 days from your next injection appointment. It can be done the same day as injection provided 4th gen rapid HIV-1 test is non- reactive before injection and HIV-1 RNA assay has been drawn at lab. Thorough STI testing every other visit (every 4 mos) or sooner if needed in addition to HIV testing. Serologies and swabs done today, next due 01/13/25. LFTs 6 months after first injection, then annually: next due 11/12/25. Appointment for 2nd month of injections (1 month and then every 2 mos thereafter w/ 7d chris period): 01/03/25 @9 am documented in this encounter Miscellaneous Notes * Addendum Note - Jordan Cagle RN - 11/12/2024 9:00 AM ESTAddended by: JORDAN CAGLE on: 11/12/2024 09:51 AM Modules accepted: Orders documented in this encounter Plan of Treatment Upcoming Encounters Date Type Department Care Team (Late st Contact Info) Description 11/30/2024 1:00 PM EST Office Visit [facility] [address] [place] [address] Autumn Lainez ANP [address] [place] [address] 12/27/2024 9:00 AM EDT Clinical Support [facility] [address] [place] [address] Jordan Cagle, RODO [address] [place] [address] Scheduled Orders Name Type Priority Associated Diagnoses Orde r Schedule HIV-1 RNA, Quantitative, Real-Time PCR Lab Routine On pre-exposure prophylaxis for HIV Expected: 11/12/2024 (Approximate), Expires: 11/12/2025 Hepatic Function Panel Lab Routine On pre-exposure prophylaxis for HIV Expected: 11/12/2024 (Approximate), Expires: 11/12/2025 documented as of this encounter Procedures Procedure Name Priority Date/Time Associated Diagnosis Comments POCT RAPID HIV SCREENING Routine 11/12/2024 9:51 AM EST On pre-exposure prophylaxis for HIV documented in this encounter Results * POCT RAPID HIV SCREENING (11/12/2024 9:51 AM EST) Blood 11/12/2024 9:51 AM EST Narrative Jordan Cagle RN - 11/12/2024 9:51 AM EST negative Shawn Calzada MD POINT OF CARE TEST ENTER/EDIT OR DERABLES Final Result documented in this encounter Visit Diagnoses Diagnosis On pre-exposure prophylaxis for HIV documented in this encounter Administered Medications Inactive Administered Medications - up to 3 most recent administrations Medication Order MAR Action Action Date Dose Rate Site Cabotegravir ER Suspension Extended Release 600 mg 600 mg, Intramuscular, Once, On 11/12/24 at 0945, For 1 dose, Ventrogluteal.Indication s:On pre-exposure prophylaxis for HIV Given 11/12/2024 9:45 AM EST 600 mg Left Upper Buttock documented in this encounter Additional Health Concerns Assessment Noted Time PHQ-9 Depression Total Score: 16 024 2:08 PM EST documented as of this encounter Care Teams Employee Benefits Attorney Relationship Specialty Start Date End Date Autumn Lainez ANP [address] [place] [address] PCP - General Family Medicine 08/17/24 documented as of this encounter
--- OUTSIDE RECORDS SUMMARY | 2024-11-12 09:53 | XMS_ITS | Encounter Summary ---
Author Organization [employer] Address 75 [facility] 7t [place] [address] Care Team Providers Care Staffing Account Manager Name Role Phone Autumn Lainez Primary Care Provider [phone] Reason for Visit * Reason Comments Med Refill Encounter Details Date Type Department Care Team ([facility] st Contact Info) Description 08/05/2024 Refill [facility] [address] [place] [address] Autumn Lainez ANP [address] [place] [address] On pre-exposure prophylaxis for HIV Social History [...] Description 11/30/2024 1:00 PM EST Office Visit [address] [address] Autumn Lainez ANP [address] [place] [address] 12/27/2024 9:00 AM EDT Clinical Support [address] [address] Alissa Light, RODO [address] [place] [address] documented as of this encounter Visit Diagnoses Diagnosis On pre-exposure prophylaxis for HIV documented in this encounter Additional Health Concerns Assessment Noted Time PHQ-9 Depression Total Score: 6 05/16/20 24 2:59 PM EDT documented as of this encounter Care Teams Staffing Account Manager Relationship Specialty Start Date End Date Autumn Lainez ANP [address] [place] [address] PCP - General Family Medicine 08/17/24 documented as of this encounter
--- OUTSIDE RECORDS SUMMARY | 2024-11-12 09:53 | XMS_ITS | Encounter Summary ---
Author Organization [employer] Address 75 [facility] 7t [place] [address] Care Team Providers Care Chartered Financial Analyst Name Role Phone Autumn Lainez HILARY Primary Care Provider [phone] Encounter Details Date Type Department Care Team (Latest Contact Info) Description 11/06/2024 Travel Social History Tobacco Use Types Packs/Day [...] Description 11/30/2024 1:00 PM EST Office Visit [facility] [address] [place] [address] Autumn Lainez ANP [address] [place] [address] 12/27/2024 9:00 AM EDT Clinical Support [facility] [address] [place] [address] Ailssa Light, RODO [address] [place] [address] documented as of this encounter Visit Diagnoses Not on filedocumented in this encounter Additional Health Concerns Assessment Noted Time PHQ-9 Depression Total Score: 16 024 2:08 PM EST documented as of this encounter Care Teams Chartered Financial Analyst Relationship Specialty Start Date End Date Autumn Lainez ANP [address] [place] [address] PCP - General Family Medicine 08/17/24 documented as of this encounter
--- OUTSIDE RECORDS SUMMARY | 2024-11-12 09:53 | XMS_ITS | Encounter Summary ---
Author Organization [employer] Address 75 [facility] 7[address] [place] [address] Care Team Providers Care Neurological Physiotherapist Name Role Phone Autumn Lainez HILARY Primary Care Provider [phone] Reason for Visit * Reason Comments RC Recovery Supports Encounter Details Date Type Department Care Team ([facility] st Contact Info) Description 10/16/2024 Patient Outreach [facility] [address] [place], [place] [phone] Xander Arteaga [address] [place] [address] Recovery Supports Social History Tobacco Use Types [...] encounter Progress Notes * Xander Arteaga - 10/16/2024 4:11 PM EST I met with Al today. Setting: in person at [facility] Recovery Wellness Goals worked on: Physical Health/Mental Health and Social Stability Action taken/next steps: Attended recovery support group Additional comments: Participant attended a group session centered on recovery topics, where members engaged in open discussion and offered mutual support Xander Arteaga documented in this encounter Plan of Treatment Upcoming Encounters Date Type Department Care Team (Late st Contact Info) Description 11/30/2024 1:00 PM EST Office Visit [facility] [address] [place] [address] Autumn Lainez ANP [address] [place] [address] 12/27/2024 9:00 AM EDT Clinical Support [facility] [address] [place] [address] Alissa Light, RN [address] [place] [address] documented as of this encounter Visit Diagnoses Not on filedocumented in this encounter Additional Health Concerns Assessment Noted Time PHQ-9 Depression Total Score: 16 024 2:08 PM EST documented as of this encounter Care Teams Neurological Physiotherapist Relationship Specialty Start Date End Date Autumn Lainez ANP 230 [place] [address] PCP - General Family Medicine 08/17/24 documented as of this encounter
--- OUTSIDE RECORDS SUMMARY | 2024-11-12 09:53 | XMS_ITS | Encounter Summary ---
Author Organization [employer] Address [address] [facility] [address] [place] [address] Care Team Providers Care Oil Field Tester Name Role Phone Autumn Lainez HILARY Primary Care Provider [phone] Reason for Visit * Reason Comments RC Recovery Supports Encounter Details Date Type Department Care Team (Late st Contact Info) Description 10/30/2024 Patient Outreach [facility] 230 [place] [address] Timur Prince Recovery Supports Social History Tobacco Use Types [...] as of this encounter Progress Notes * Timur Prince - 10/30/2024 3:25 PM EST I met with Al today. Setting: in person at [facility] Recovery Wellness Goals worked on: Social Stability Action taken/next steps: Attended recovery support group and Offered person centered recovery support Additional comments: RSG Timur Prince documented in this encounter Plan of Treatment Upcoming Encounters Date Type Department Care Team (Late st Contact Info) Description 11/30/2024 1:00 PM EST Office Visit [facility] [address] [place] [address] Autumn Lainez ANP [address] [place] [address] 12/27/2024 9:00 AM EDT Clinical Support [facility] [address] [place] [address] Alissa Light RN [address] [place] [address] documented as of this encounter Visit Diagnoses Not on filedocumented in this encounter Additional Health Concerns Assessment Noted Time PHQ-9 Depression Total Score: 16 024 2:08 PM EST documented as of this encounter Care Teams Oil Field Tester Relationship Specialty Start Date End Date Autumn Lainez ANP 230 [place] [address] PCP - General Family Medicine 08/17/24 documented as of this encounter
--- OUTSIDE RECORDS SUMMARY | 2024-11-12 09:53 | XMS_ITS | Encounter Summary ---
Author Organization [employer] Address 75 [facility] 7t [place] [address] Care Team Providers Care Sharepoint Net Developer Name Role Phone Autumn Lainez HILARY Primary Care Provider [phone] Encounter Details Date Type Department Care Team (Latest Contact Info) Description 11/12/2024 Travel Social History Tobacco Use Types Packs/Day [...] Description 11/30/2024 1:00 PM EST Office Visit [facility] [address] [place] [address] Autumn Lainez ANP [address] [place] [address] 12/27/2024 9:00 AM EDT Clinical Support [facility] [address] [place] [address] Alissa Light, RODO [address] [place] [address] documented as of this encounter Visit Diagnoses Not on filedocumented in this encounter Additional Health Concerns Assessment Noted Time PHQ-9 Depression Total Score: 16 024 2:08 PM EST documented as of this encounter Care Teams Sharepoint Net Developer Relationship Specialty Start Date End Date Autumn Lainez ANP [address] [place] [address] PCP - General Family Medicine 08/17/24 documented as of this encounter
--- OUTSIDE RECORDS SUMMARY | 2024-11-12 09:53 | XMS_ITS | Encounter Summary ---
Author Organization [employer] Address 75 [facility] 7[address] [place] [address] Care Team Providers Care Laundry Routeman Name Role Phone Migel Autumn RICHARD Primary Care Provider [phone] Encounter Details Date Type Department Care Team ([facility] st Contact Info) Description 10/23/2024 2:15 PM EST Office Visit [facility] 230 [place], [place] [phone] Rosario Sanchez MD [address] [place], [place] [phone] Bipolar affective disorder in remission (CMS/HCC) (Primary Dx); Stress Social History Tobacco Use Types Packs/Day Years [...] as of this encounter Progress Notes * Rosario Sanchez MD - 10/23/2024 2:15 PM EST Subjective Patient ID: Al Putnam is a 29 y.o. male who presents for Acupuncture. Al is here for ongoing acupuncture treatments for anxiety and stress. He is feeling relaxation with each treatment. Objective Physical Exam Constitutional: Appearance: Normal appearance. Skin: General: Skin is warm and dry. Neurological: Mental Status: He is alert and oriented to person, place, and time. Assessment/Plan Diagnoses and all orders for this visit: Stress Written consent obtained for ear acupuncture. Ears prepped with alcohol pad. Five ear points needled bilaterally: Sympathetic, Hammond Men, Kidney, Liver and Lung. Treatment duration: 30 minutes. Good hemostasis. Patient tolerated well. Follow up weekly for repeat acupuncture treatments as desired. documented in this encounter Plan of Treatment Upcoming Encounters Date Type Department Care Team (Late st Contact Info) Description 11/30/2024 1:00 PM EST Office Visit [facility] [address] [place] [address] Autumn Lainez ANP [address] [place], [place] [phone] 12/27/2024 9:00 AM EDT Clinical Support [facility] [address] [place] [address] Alissa Light, RN [address] [place] [address] documented as of this encounter Visit Diagnoses Diagnosis Bipolar affective disorder in remission (CMS/HCC)- Primary Stress Other psychological or physical stress, not elsewhere classified documented in this encounter Additional Health Concerns Assessment Noted Time PHQ-9 Depression Total Score: 16 024 2:08 PM EST documented as of this encounter Care Teams Laundry Routeman Relationship Specialty Start Date End Date Autumn Lainez ANP [address] [place] [address] PCP - General Family Medicine 08/17/24 documented as of this encounter
--- OUTSIDE RECORDS SUMMARY | 2024-11-12 09:53 | XMS_ITS | Encounter Summary ---
Author Organization [employer] Address 75 [facility] 7[address] [place] [address] Care Team Providers Care Metal Fabricator Helper Name Role Phone Migel Autumn RICHARD Primary Care Provider [phone] Reason for Visit * Reason Comments RC Recovery Supports Encounter Details Date Type Department Care Team ([facility] st Contact Info) Description 10/26/2024 Patient Outreach [facility] 230 [place], [place] [phone] Sammy Tyson [address] [place] [address] RC Recovery Supports Social History Tobacco Use Types [...] as of this encounter Progress Notes * Sammy Tyson - 10/26/2024 3:40 PM EST I met with Al nichole. Setting: in person at [facility] Recovery Wellness Goals worked on: Social Stability Action taken/next steps: Attended recovery support group Additional comments: Participant attended a group session centered on recovery topics, where members engaged in open discussion and offered mutual support Sammy Tyson documented in this encounter Plan of Treatment Upcoming Encounters Date Type Department Care Team (Late st Contact Info) Description 11/30/2024 1:00 PM EST Office Visit [facility] [address] [place] [address] Autumn Lainez ANP [address] [place] [address] 12/27/2024 9:00 AM EDT Clinical Support [facility] [address] [place] [address] Alissa Light, RN [address] [place] [address] documented as of this encounter Visit Diagnoses Not on filedocumented in this encounter Additional Health Concerns Assessment Noted Time PHQ-9 Depression Total Score: 16 024 2:08 PM EST documented as of this encounter Care Teams Metal Fabricator Helper Relationship Specialty Start Date End Date Autumn Lainez ANP [address] [place] [address] PCP - General Family Medicine 08/17/24 documented as of this encounter
--- OUTSIDE RECORDS SUMMARY | 2024-11-12 09:53 | XMS_ITS | Clinical Summary ---
Author Organization [facility] Address [address] [place] [address] Phone Care Team Providers Care Crisis Clinician Name Role Phone Unavailable Primary Care Provider Unavailabl e Immunizations Immunization Administration Dates Next Due DTP 10/02/1994, 4,1993,08/02 DTaP 5 07/02/1998 H1N1 10/29/2009 HPV, Quadrivalent 08/20/2013,04/17/2013,02/15/20 13 Hep A, ped/adol 04/03/2014 Hep B, ped/adol 1993,1993,1993 Hib (PRP-T) 06/02/1994, 4,1993,08/02 IPV 07/02/1998, 4,1993,08/02 Influenza Split 09/06/2011 Influenza, injectable, trivalent 009,11/28/2008,10/27/2007,10/12 Influenza, intranasal, trivalent 06/03/2010 MMR 07/02/1998,06/02/1994 Meningococcal Conj (Menactra) MCV4P 10/27/2007 Td (adult) (MBL), 2 Lf tetan us toxoid, PF, adsorbed 03/25/2004 Tdap 12/10/2008 Varicella 12/10/2008,12/31/1997 Family History Relation Name Status Comments Half-Brother Alive Half brother (M ): Alive and well Mother Alive Mother: , Alive and well Other Family history of *Dental caries, No family history of *Sudden /NH under 55, , No family history of *Heart Disease, No family history of *CVA/Stroke Social History Tobacco Use Types Packs/Day Years Used Date Smoking Tobacco: Never Comments:Never smoker Sex and Gender Information Value Date Recorded Sex Assigned at Not on file Legal Sex Male 4:46 PM EDT Gender Identity Not on file Sexual Orientation Not on file Last Filed Vital Signs Vital Sign Reading Time Taken Comments Blood Pressure 94/57 04/15/2014 12:00 AM EDT Pulse 82 09/06/2011 12:00 AM EST Temperature 36.6 ??C (97.9 ??F) 04/15/2014 1 2:00 AM EDT Respiratory Rate - - Oxygen Saturation 99% 09/06/2011 12: 00 AM EST Inhaled Oxygen Concentration - - Weight 63.9 kg (140 lb 12.8 oz) 014 12:00 AM EDT Height 167.4 cm (5' 5.9 ) 04/15/2014 12 :00 AM EDT Body Mass Index 22.79 04/15/2014 12:00 AM EDT Plan of Treatment Health Maintenance Due Date Last Done Comments Hepatitis B Vaccines (4 of 4 - 4-dose series) 1993 1993, 1993, 1993 DTaP,Tdap,and Td Vaccines (7 - Td or Tdap) 12/10/2018 12/10/2008, 03/25/2004, 07/02/1998, Additional history exists Influenza Vaccines (#1) 2024 09/06/20, 06/03/2010, 07/01/2009, Additional history exists COVID-19 Vaccine ( season) 2024 HIB Vaccines Completed 06/02/1994, 12/03, 1993, Additional history exists IPV Vaccines Completed 07/02/1998, 12/03, 1993, Additional history exists MMR Vaccines Completed 07/02/1998, 06/02/1994 Meningococcal Vaccine Aged Out 10/27/2007 No bahman kenny eligible based on patient's age to complete this topic Varicella Vaccines Completed 12/10/2008, 12/31/1997 HPV Vaccines Completed 08/20/2013, 04/02, 02/14/2013 Hepatitis A Vaccines Aged Out 04/03/2014 No long er eligible based on patient's age to complete this topic Men B Vaccine Aged Out No longer elig ible based on patient's age to complete this topic Pneumococcal Vaccine Aged Out No long er eligible based on patient's age to complete this topic
--- OUTSIDE RECORDS SUMMARY | 2024-11-12 09:53 | XMS_ITS | Encounter Summary ---
Author Organization [employer] Address [address] [facility] [address], [place] [address] Care Team Providers Care Manager Field Services Name Role Phone Autumn Lainez Primary Care Provider [phone] Reason for Visit * Reason Comments Care Coordination C3 MARY KAY vera telephone call outreach Encounter Details Date Type Department Care Team (Latest Contact Info) Description 10/29/2024 Patient Outreach [facility] [address] [place] [address] Autumn Lainez ANP [address] [place] [address] Care Coordination (C3 MARY KAY Guillory telephone call outreach) Social History Tobacco Use Types Packs/Day Years [...] as of this encounter Progress Notes * Sydnee Guillory - 10/29/2024 3:48 PM EST CHW Sydnee Guillory placed outbound call to patient for follow up call on SDOH needs. No answer at thistime. LVM introducing herself from [facility] CM Department. Requested call back. CHW reinforced direct contact information or CM for any additional questionsor concerns and extended clinic hours on Mondays and Wednesdays, and Walk-In Urgent Care Located inLobby of [facility]. Patient provided with after-hours line for [facility], , which offer night time triage service and option to transfer to bone plant supervisor provider if needed. CHW will attempt another followup call within 10 days. documented in this encounter Plan of Treatment Upcoming Encounters Date Type Department Care Team ([facility] st Contact Info) Description 11/30/2024 1:00 PM EST Office Visit [facility] [address] [place] [address] Autumn LainezHILARY [address] [place] [address] 12/27/2024 9:00 AM EDT Clinical Support [facility] [address] [place] [address] Alissa Light, RODO [address] [place] [address] documented as of this encounter Visit Diagnoses Not on filedocumented in this encounter Additional Health Concerns Assessment Noted Time PHQ-9 Depression Total Score: 16 024 2:08 PM EST documented as of this encounter Care Teams Manager Field Services Relationship Specialty Start Date End Date Autumn Lainez ANP [address] [place] [address] PCP - General Family Medicine 08/17/24 documented as of this encounter
--- OUTSIDE RECORDS SUMMARY | 2024-11-12 09:53 | XMS_ITS | Encounter Summary ---
Author Organization [employer] Address [address] [facility] [address] [place] [address] Care Team Providers Care Senior Data Modeler Name Role Phone Migel Auutmn RICHARD Primary Care Provider [phone] Encounter Details Date Type Department Care Team ([facility] st Contact Info) Description 11/06/2024 1:45 PM EST Office Visit [facility] [address] [place] [address] Rosario Sanchez MD [address] [place], [place] [phone] ANDRES (generalized anxiety disorder) (Primary Dx); Bipolar affective disorder in remission (CMS/HCC) Social History Tobacco Use Types Packs/Day Years [...] Progress Notes * Rosario Sanchez MD - 11/06/2024 1:45 PM EST Subjective Patient ID: Al Putnam [...] Description 11/30/2024 1:00 PM EST Office Visit [facility] [address] [place] [address] Autumn Lainez ANP [address] [place] [address] 12/27/2024 9:00 AM EDT Clinical Support [facility] [address] [place] [address] Alissa Light, RN [address] [place] [address] documented as of this encounter Visit Diagnoses Diagnosis ANDRES (generalized anxiety disorder)- Primary Generalized anxiety disorder Bipolar affective disorder in remission ([facility] documented in this encounter Additional Health Concerns Assessment Noted Time PHQ-9 Depression Total Score: 16 024 2:08 PM EST documented as of this encounter Care Teams Senior Data Modeler Relationship Specialty Start Date End Date Autumn Lainez ANP [address] [place] [address] PCP - General Family Medicine 08/17/24 documented as of this encounter
--- OUTSIDE RECORDS SUMMARY | 2024-11-12 09:53 | XMS_ITS | Encounter Summary ---
Author Organization [employer] Address [address] [facility] [address] [place] [address] Care Team Providers Care Community Mental Health Worker Name Role Phone Autumn Lainez HILARY Primary Care Provider [phone] Reason for Visit * Reason Comments RC Recovery Supports Encounter Details Date Type Department Care Team ([facility] st Contact Info) Description 10/29/2024 Patient Outreach [facility] [address] [place], [place] [phone] Xander Arteaga [address] [place] [address] Recovery Supports Social History Tobacco Use Types [...] encounter Progress Notes * Xander Arteaga - 10/29/2024 3:59 PM EST I met with Al today. Setting: in person at [facility] Recovery Wellness Goals worked on: Physical Health/Mental Health, Social Stability, and Spiritual Wellness Action taken/next steps: Attended recovery support group Additional comments: Attended 12-step support group focused on introducing Steps 1, 2, and 3, and discussing their application in our recovery journey. Xander Arteaga documented in this encounter Plan of Treatment Upcoming Encounters Date Type Department Care Team (Late st Contact Info) Description 11/30/2024 1:00 PM EST Office Visit [facility] [address] [place] [address] Autumn Lainez ANP [address] [place] [address] 12/27/2024 9:00 AM EDT Clinical Support [facility] [address] [place] [address] Alissa Light, RODO [address] [place] [address] documented as of this encounter Visit Diagnoses Not on filedocumented in this encounter Additional Health Concerns Assessment Noted Time PHQ-9 Depression Total Score: 16 024 2:08 PM EST documented as of this encounter Care Teams Community Mental Health Worker Relationship Specialty Start Date End Date Autumn Lainez ANP [address] [place] [address] PCP - General Family Medicine 08/17/24 documented as of this encounter
[2024-11-12 11:34] LABS: Alanine Aminotransferase 22 U/L (0-40); Albumin Level 4.3 g/dL (3.5-5.0); Alkaline Phosphatase 46 U/L (39-117); Aspartate Amino Transferase 22 U/L (5-37); Bilirubin Direct 0.1 mg/dL (0.0-0.5); Bilirubin Total 0.3 mg/dL (0.0-1.0); Total Protein 7.5 g/dL (6.5-8.0)
[2024-11-14 15:18] LABS: HIV RNA PCR Qn Copies NOT DETECTED copies/mL (NOT DETECTED); HIV RNA PCR Qn Log Copies NOT DETECTED (NOT DETECTED)
== END 2024-11-12 09:18 | disposition home or self-care (01) ==
LOC: HO.HHCL 09:17
PROVIDERS: Visit Provider Nurse Practitioner Primary Care
DX: Z79.899 Other long term (current) drug therapy (principal); Z11.59 Encounter for screening for other viral diseases
CPT/HCPCS: 36415; 80076; 87536

== ENCOUNTER 2024-12-10 10:01 | Outpatient (REF) | payer MEDICAID, SELFPAY ==
--- NOTE | ~2024-12-10 | XR_ITS ---
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 COMPARISON: There are no prior studies for comparison. FINDINGS: Five views of the skull are submitted. Osseous mineralization is normal. There is fracture or lytic lesion. The paranasal sinuses and mastoid air cells are normally pneumatized. XR/XR skull min 4V IMPRESSION: Unremarkable examination of the skull. Electronically signed by: Tereso Carnes MD 12/10/2024 11:14 AM EDT
--- OUTSIDE RECORDS SUMMARY | 2024-12-10 11:06 | XMS_ITS | Encounter Summary ---
Author Organization [employer] Address [address] [facility] [address] [place] [address] Care Team Providers Care Chemicals Distiller Name Role Phone Autumn Lainez HILARY Primary Care Provider [phone] Reason for Visit * Reason Comments RC Recovery Supports Encounter Details Date Type Department Care Team ([facility] st Contact Info) Description 12/04/2024 Patient Outreach [facility] [address] [place] [address] Jasvir Morgan Recovery Supports Social History Tobacco Use Types Packs/Day Years Used Date Smoking Tobacco: Never Alcohol Answer Date Recorded Frequency of Alcohol Consumption Not on file 06/14/2024 Average Number of Drinks Not on file 024 Frequency of Binge Drinking Not on file 06/03 Score 0 06/14/2024 Depression Answer Date Recorded Patient Health Questionnaire-9 Score 10 11/30/2024 Patient Health Questionnaire-9 Score 10 11/30/2024 Last PHQ-9: Questionnaire Data Not on file 0 11/30/2024 Housing Stability Answer Date Recorded What is your housing situation today? I have patrice bautista 11/16/[address] you li ve. Do you have problems with any of the following? None of the above 11/16/2024 Food Insecurity Answer Date Recorded Within the past 12 months, y ou worried that your food would run out before you got money to buy more: Never True 11/16/2024 Within the past 12 months,th e food you bought just didn't last and you didn't have enough money to get more: Never True Transportation Answer Date Recorded In the past 12 months, has l ack of transportation kept you from medical appts, meetings, work or from getting things needed for daily living? Yes, it has kept me from medical appointments or getting medications. 11/16/2024 Utilities Answer Date Recorded In the past 12 months, has t he electric, gas, oil or water company threatened to shut off services in your home? No 06/08/2024 Depression Answer Date Recorded Patient Health Questionnaire-2 Score 3 11/30/2024 Internet Access Answer Date Recorded Internet Access [...] encounter Progress Notes * Jasvir Morgan - 12/04/2024 10:03 AM EST I met with Al today. Setting: in person at [facility] Recovery Wellness Goals worked on: Social Stability Action taken/next steps: Attended alcohol and drug free activity Additional comments: The participant Al Almanza was at the recovery center. Jasvir Morgan documented in this encounter Plan of Treatment Upcoming Encounters Date Type Department Care Team (Late st Contact Info) Description 12/27/2024 9:00 AM EDT Clinical Support [facility] [address] [place] [address] Alissa Light, RODO [address] [place] [address] documented as of this encounter Visit Diagnoses Not on filedocumented in this encounter Additional Health Concerns Assessment Noted Time PHQ-9 Depression Total Score: 10 025 1:05 PM EST documented as of this encounter Care Teams Chemicals Distiller Relationship Specialty Start Date End Date Autumn Lainez ANP [address] [place] [address] PCP - General Family Medicine 08/17/24 documented as of this encounter
--- OUTSIDE RECORDS SUMMARY | 2024-12-10 11:06 | XMS_ITS | Encounter Summary ---
Author Organization [employer] Address [address] [facility] [address] [place] [address] Care Team Providers Care Cabinetmaker Helper Name Role Phone Migel Autumn RICHARD Primary Care Provider [phone] Encounter Details Date Type Department Care Team ([facility] st Contact Info) Description 12/10/2024 9:30 AM EDT Office Visit [facility] [address] [place], [place] [phone] Amee Salcido NP [address] [place] [address] Skull asymmetry (Primary Dx) Social History Tobacco Use Types Packs/Day Years [...] AM EST documented as of this encounter Last Filed Vital Signs Vital Sign Reading Time Taken Comments Blood Pressure 114/76 12/10/2024 9:26 AM EDT Pulse 98 12/10/2024 9:26 AM EDT Temperature 37 ??C (98.6 ??F) 12/10/2024 9:26 AM EDT Respiratory Rate 18 12/10/2024 9:26 AM EDT Oxygen Saturation 99% 12/10/2024 9:26 AM EDT Inhaled Oxygen Concentration - - Weight 91.2 kg (201 lb) 12/10/2024 9:26 AM EDT Height 167.6 cm (5' 6 ) 12/10/2024 9:26 AM EDT Body Mass Index 32.44 12/10/2024 9:26 AM EDT documented in this encounter Progress Notes * Amee Salcido, REGINO - 12/10/2024 9:30 AM EDT Images from the original note were not included. Subjective: Al Putnam is a 29 y.o. male who presents to the office for a sick visit. HPI Right side of head, on the side, has had since childhood, hard to say if it has grown of changed, but is described a firm, can tell when cutting hair there is asymmetry, not aware of any infection inthe past, describes lump as tight Cannot recall preceeding trauma Requesting imaging Patient Active Problem List Diagnosis Stress Recurrent major depressive disorder, in partial remission (CMS/HCC) ANDRES (generalized anxiety disorder) History of substance use disorder Bipolar affective disorder in remission (CMS/HCC) parveen Skull asymmetry Review of Systems Constitutional: Negative for activity change and appetite change. HENT: Negative for congestion and dental problem. Respiratory: Negative for apnea and chest tightness. Neurological: Negative for dizziness, facial asymmetry and headaches. No Known Allergies Objective: Visit Vitals BP 114/76 (BP Location: Right arm, Patient Position: Sitting, BP Cuff Size: Large adult) Pulse 98 Temp 98.6 ??F (37 ??C) (Temporal) Resp 18 Ht 5' 6 (1.676 m) Wt 201 lb (91.2 kg) SpO2 99% BMI 32.44 kg/m?? Smoking Status Never BSA 2.06 m?? Physical Exam Vitals reviewed. Constitutional: Appearance: Normal appearance. HENT: Head: Normocephalic. Comments: Prominent suture Cardiovascular: Rate and Rhythm: Normal rate. Heart sounds: Normal heart sounds. Pulmonary: Breath sounds: Normal breath sounds. Abdominal: Palpations: Abdomen is soft. Musculoskeletal: Cervical back: Neck supple. Neurological: Mental Status: He is alert. Psychiatric: Mood and Affect: Mood normal. Assessment/Plan: Problem List Items Addressed This Visit Skull asymmetry - Primary Current Assessment & Plan No trauma, no headaches, suspect congential variant. Will image per pt request Pt aware of s/s to report Relevant Orders XR Skull Complete 4+ Views Current Outpatient Medications Medication Sig Dispense Refill ARIPiprazole (Abilify) 10 MG tablet Take 1 tablet (10 mg) by mouth Once per day. 30 tablet 1 Cabotegravir ER 600 MG/3ML Suspension Extended Release Inject 600 mg into the muscle See administration instructions. Ventrogluteal Every other month 3 mL 5 hydrOXYzine pamoate (Vistaril) 25 MG capsule Take 1 capsule (25 mg) by mouth if needed in the morning and at bedtime for anxiety. May take the 2 caps at bedtime. 60 capsule 1 No current facility-administered medications for this visit. documented in this encounter Miscellaneous Notes * Assessment & Plan Note - Amee Salcido NP - 12/10/2024 9:46 AM EDTAssociated Problem(s): Skull asymmetry No trauma, no headaches, suspect congential variant. Will image per pt request Pt aware of s/s to report documented in this encounter Plan of Treatment Upcoming Encounters Date Type Department Care Team (Late st Contact Info) Description 12/27/2024 9:00 AM EDT Clinical Support [facility] [address] [place] [address] Alissa Light, RN [address] [place] [address] Scheduled Orders Name Type Priority Associated Diagnoses Orde r Schedule XR Skull Complete 4+ Views Imaging Routine Skull asymmetry Expected: 12/10/2024, Expires: 12/10/2025 documented as of this encounter Visit Diagnoses Diagnosis Skull asymmetry- Primary documented in this encounter Additional Health Concerns Assessment Noted Time PHQ-9 Depression Total Score: 10 11/30/2 025 1:05 PM EST documented as of this encounter Care Teams Cabinetmaker Helper Relationship Specialty Start Date End Date Autumn Lainez ANP [address] [place] [address] PCP - General Family Medicine 08/17/24 documented as of this encounter
--- OUTSIDE RECORDS SUMMARY | 2024-12-10 11:06 | XMS_ITS | Encounter Summary ---
Author Organization [employer] Address [address] [facility] [address], [place] [address] Care Team Providers Care Punch Molder Name Role Phone Autumn Lainez HILARY Primary Care Provider [phone] Reason for Visit * Reason Comments RC Recovery Supports Encounter Details Date Type Department Care Team ([facility] st Contact Info) Description 12/03/2024 Patient Outreach [facility] [address] [place], [place] [phone] Xander Arteaga [address] [place] [address] Recovery Supports Social History Tobacco Use Types [...] encounter Progress Notes * Xander Arteaga - 12/03/2024 2:17 PM EST I met with Al today. Setting: in person at [facility] Recovery Wellness Goals worked on: Physical Health/Mental Health, Social Stability, and Spiritual Wellness Action taken/next steps: Attended recovery support group Additional comments: Participant attended a group session centered on recovery topics, where members engaged in open discussion and offered mutual support. Xander Arteaga documented in this encounter Plan of Treatment Upcoming Encounters Date Type Department Care Team (Late st Contact Info) Description 12/27/2024 9:00 AM EDT Clinical Support [facility] [address] [place] [address] Alissa Light, RODO [address] [place] [address] documented as of this encounter Visit Diagnoses Not on filedocumented in this encounter Additional Health Concerns Assessment Noted Time PHQ-9 Depression Total Score: 10 025 1:05 PM EST documented as of this encounter Care Teams Punch Molder Relationship Specialty Start Date End Date Autumn Lainez ANP [address] [place] [address] PCP - General Family Medicine 08/17/24 documented as of this encounter
--- OUTSIDE RECORDS SUMMARY | 2024-12-10 11:06 | XMS_ITS | Encounter Summary ---
Author Organization [employer] Address [address] [facility] [address], [place] [address] Care Team Providers Care Towel Distributor Name Role Phone Migel Autumn RICHARD Primary Care Provider [phone] Reason for Visit * Reason Comments GBAT Encounter Details Date Type Department Care Team ([facility] Contact Info) Description 12/05/2024 9:00 AM EST Office Visit [facility] [address] [place], [place] [phone] Shawn Calzada MD [address] [place], [place] [phone] Alcohol use disorder (Primary Dx); Cocaine use disorder (CMS/HCC) Social History Tobacco Use Types Packs/Day [...] as of this encounter Progress Notes * Shawn Calzada MD - 12/05/2024 9:00 AM EST Patient with crack cocaine and alcohol use disorder. Not seeking MAT at this time. Has been participating in the GBAT meetings. LAST GBAT VISIT 09/19/2024 Patient presents for Group-Based Addiction Treatment for AUD and cocaine use disorder Reports >1 year sobriety Reviewed the group goals, expectations and policies Consented to the group treatment options Actively participated in the group discussion with the topic of: Toolbox for Maintaining Sobriety Following staff present at the visit: Physician, Parking Meter Mechanic, Clinician, Team RN, and MedicalAssistant Opportunities provided to address individual medical/medication/BH concerns States doing well without cravings or relapse TODAY GBAT VISIT 12/05/2024 Patient presents for Group-Based Addiction Treatment for AUD and cocaine use disorder Reports >1 year sobriety Reviewed the group goals, expectations and policies Consented to the group treatment options Actively participated in the group discussion with the topic of: Significance of Serenity Prayer (Part 2) Following staff present at the visit: Physician, Parking Meter Mechanic, Clinician, Team RN, and MedicalAssistant Opportunities provided to address individual medical/medication/BH concerns States doing well without cravings or relapse Review of Systems Psychiatric/Behavioral: Negative for behavioral problems and dysphoric mood. The patient is not nervous/anxious. Physical Exam Constitutional: Appearance: Normal appearance. Pulmonary: Effort: Pulmonary effort is normal. Neurological: Mental Status: He is alert. Psychiatric: Mood and Affect: Mood normal. Behavior: Behavior normal. Al was seen today for gbat. Diagnoses and all orders for this visit: Alcohol use disorder (Primary) Cocaine use disorder (CMS/HCC) Patient presents for Group-Based Addiction Treatment of AUD and cocaine use disorder Reviewed the group goals, expectations and policies Consented to the group treatment options Actively participated in the group discussed Future discussion topics reviewed Not currently on MAT Reviewed behavioral modification and accessing services Group counseling provided with a focus on support system, tools for achieving/maintaining recovery Reviewed barriers for these goals Discussed strategies to address when faced situations that may trigger use [place] [facility] CASE MANAGER reviewed Following staff present at the visit: Physician, Team RN, Clinician, Parking Meter Mechanic and Produce Specialist This information has been disclosed to you from records protected by federal confidentiality rules (42 CFR Part 2). The federal rules prohibit you from making any further disclosure of information inthis record that identifies a patient as having or having had a substance use disorder either directly, by reference to publicly available information, or through verification of such identification by another person unless further disclosure is expressly permitted by the written consent of the individual whose information is being disclosed or as otherwise permitted by (see2.3.1). The federal rules restrict any use of the information to investigate or prosecute with regard to a crime any patient with a substance use disorder, except as provided at 2.12??(5) and 2.65. documented in this encounter Plan of Treatment Upcoming Encounters Date Type Department Care Team (Late st Contact Info) Description 12/27/2024 9:00 AM EDT Clinical Support [facility] [address] [place] [address] Alissa Light, RN [address] [place] [address] documented as of this encounter Visit Diagnoses Diagnosis Alcohol use disorder- Primary Cocaine use disorder (CMS/HCC) documented in this encounter Additional Health Concerns Assessment Noted Time PHQ-9 Depression Total Score: 10 11/30/ 025 1:05 PM EST documented as of this encounter Care Teams Towel Distributor Relationship Specialty Start Date End Date Autumn Lainez ANP [address] [place] [address] PCP - General Family Medicine 08/17/24 documented as of this encounter
--- OUTSIDE RECORDS SUMMARY | 2024-12-10 11:06 | XMS_ITS | Encounter Summary ---
Author Organization [employer] Address 75 [facility] 7t [place] [address] Care Team Providers Care Groundwater Consultant Name Role Phone Autumn Lainez HILARY Primary Care Provider [phone] Encounter Details Date Type Department Care Team (Latest Contact Info) Description 12/05/2024 Travel Social History Tobacco Use Types Packs/Day [...] 12/27/2024 9:00 AM EDT Clinical Support [facility] MEDICINE [address] [place] [address] Alissa Light, RODO 230 [place] [address] documented as of this encounter Visit Diagnoses Not on filedocumented in this encounter Additional Health Concerns Assessment Noted Time PHQ-9 Depression Total Score: 10 025 1:05 PM EST documented as of this encounter Care Teams Groundwater Consultant Relationship Specialty Start Date End Date Autumn Lainez ANP 230 [place] [address] PCP - General Family Medicine 08/17/24 documented as of this encounter
--- OUTSIDE RECORDS SUMMARY | 2024-12-10 11:06 | XMS_ITS | Clinical Summary ---
Author Organization [facility] Address [address] [place] [phone] Phone Care Team Providers Care Architectural Renderer Name Role Phone Unavailable Primary Care Provider [...] *Dental caries, No family history of *Sudden /[place] under 55, , No family history of [...]
--- OUTSIDE RECORDS SUMMARY | 2024-12-10 11:06 | XMS_ITS | Encounter Summary ---
Author Organization [employer] Address [address] [place] [address] [address], [place] [address] Care Team Providers Care Window Covering Sales Consultant Name Role Phone Autumn Lainez Primary Care Provider [phone] Reason for Visit * Reason Comments SDOH Concerns C3CM/CHW EDITH Mcclure SDOH f/u, PT1 Encounter Details Date Type Department Care Team ([facility] Contact Info) Description 12/03/2024 Patient Outreach [facility] MEDICINE 230 [place] [address] Autumn Lainez ANP [address] [place] [address] SDOH Concerns (C3CM/EDITH Lawson SDOH f/u, PT1) Social History Tobacco Use Types Packs/Day Years [...] as of this encounter Progress Notes * Jerson Weaver - 12/03/2024 3:18 PM EST CHW Jerson Weaver placed outbound call to patient to follow up on SDOH needs. Patient's name, and address confirmed. Patient states is doing well. CHW informed patient of PT1 approval to [facility]. Noother SDOH needs at this time. No further questions or concerns. CHW reinforced direct contact information or CM for any additional questions or concerns and extended clinic hours on Mondays and Wednesdays, and Walk-In Urgent Care Located in [facility] of [facility]. Patient provided with after-hours line for [facility], , which offer night time triage service and option totransfer to building energy consultant provider if needed. Patient verbalizes understanding, and able to repeat back to engineering writer. A follow up call will be placed within 10 days, patient agrees with plan. documented in this encounter Plan of Treatment Upcoming Encounters Date Type Department Care Team (Late st Contact Info) Description 12/27/2024 9:00 AM EDT Clinical Support [facility] 230 [place] [address] Alissa Light, RODO 230 [place] [address] documented as of this encounter Visit Diagnoses Not on filedocumented in this encounter Additional Health Concerns Assessment Noted Time PHQ-9 Depression Total Score: 10 11/30/ 025 1:05 PM EST documented as of this encounter Care Teams Window Covering Sales Consultant Relationship Specialty Start Date End Date Autumn Lainez ANP [address] [place] [address] PCP - General Family Medicine 08/17/24 documented as of this encounter
--- OUTSIDE RECORDS SUMMARY | 2024-12-10 11:06 | XMS_ITS | Encounter Summary ---
Author Organization [employer] Address 75 [facility] [address] [address] Care Team Providers Care Manager Telemarketing Name Role Phone Autumn Lainez HILARY Primary Care Provider [phone] Reason for Visit * Reason Comments RC Recovery Supports Encounter Details Date Type Department Care Team ([facility] st Contact Info) Description 12/07/2024 Patient Outreach [facility] MEDICINE 230 [place], [place] [phone] Xander Arteaga [address] [place] [address] Recovery Supports Social History Tobacco Use Types [...] encounter Progress Notes * Xander Arteaga - 12/07/2024 11:39 AM EST I met with Al today. Setting: in person at [facility] Recovery Wellness Goals worked on: Social Stability Action taken/next steps: Attended alcohol and drug free activity Additional comments: Participated in the Center. Xander Arteaga documented in this encounter Plan of Treatment Upcoming Encounters Date Type Department Care Team (Late st Contact Info) Description 12/27/2024 9:00 AM EDT Clinical Support [facility] MEDICINE 230 [place] [address] Alissa Light, RN 230 [place] [address] documented as of this encounter Visit Diagnoses Not on filedocumented in this encounter Additional Health Concerns Assessment Noted Time PHQ-9 Depression Total Score: 10 025 1:05 PM EST documented as of this encounter Care Teams Manager Telemarketing Relationship Specialty Start Date End Date Autumn Lainez ANP 230 [place] [address] PCP - General Family Medicine 08/17/24 documented as of this encounter
--- OUTSIDE RECORDS SUMMARY | 2024-12-10 11:06 | XMS_ITS | Encounter Summary ---
Author Organization [employer] Address 75 [facility] [address] [address] Care Team Providers Care Cook Mess Name Role Phone Autumn Lainez HILARY Primary Care Provider [phone] Reason for Visit * Reason Comments RC Recovery Supports Encounter Details Date Type Department Care Team ([facility] st Contact Info) Description 12/04/2024 Patient Outreach [facility] MEDICINE 230 [place], [place] [phone] Xander Arteaga 230 [place] [address] Recovery Supports Social History Tobacco Use Types [...] encounter Progress Notes * Xander Arteaga - 12/04/2024 3:17 PM EST I met with Al today. Setting: in person at [facility] Recovery Wellness Goals worked on: Physical Health/Mental Health, Social Stability, and Spiritual Wellness Action taken/next steps: Attended recovery support group Additional comments: Participant attended a group session centered on recovery topics, where members engaged in open discussion and offered mutual support. Xander Artegaa documented in this encounter Plan of Treatment Upcoming Encounters Date Type Department Care Team (Late st Contact Info) Description 12/27/2024 9:00 AM EDT Clinical Support [facility] MEDICINE [address] [place] [address] Alissa Light, RODO [address] [place] [address] documented as of this encounter Visit Diagnoses Not on filedocumented in this encounter Additional Health Concerns Assessment Noted Time PHQ-9 Depression Total Score: 10 025 1:05 PM EST documented as of this encounter Care Teams Cook Mess Relationship Specialty Start Date End Date Autumn Lainez ANP 230 [place] [address] PCP - General Family Medicine 08/17/24 documented as of this encounter
--- OUTSIDE RECORDS SUMMARY | 2024-12-10 11:06 | XMS_ITS | Encounter Summary ---
Author Organization [employer] Address 75 [facility] 7t [place] [address] Care Team Providers Care Inspector Firearms Name Role Phone Autumn Lainez HILARY Primary Care Provider [phone] Encounter Details Date Type Department Care Team (Latest Contact Info) Description 11/30/2024 Travel Social History Tobacco Use Types Packs/Day [...] Description 12/27/2024 9:00 AM EDT Clinical Support [facility] MEDICINE 230 [place] [address] Alissa Light, RODO 230 [place] [address] documented as of this encounter Visit Diagnoses Not on filedocumented in this encounter Additional Health Concerns Assessment Noted Time PHQ-9 Depression Total Score: 10 025 1:05 PM EST documented as of this encounter Care Teams Inspector Firearms Relationship Specialty Start Date End Date Autumn Lainez ANP 230 [place] [address] PCP - General Family Medicine 08/17/24 documented as of this encounter
--- OUTSIDE RECORDS SUMMARY | 2024-12-10 11:06 | XMS_ITS | Encounter Summary ---
Author Organization [facility] Address [address] [place] [address] Phone Care Team Providers Care Accounts Receivable Clerk Name Role Phone Melidna Lombardo MD Primary Care Provider Encounter Details Date Type Department Care Team (Late st Contact Info) Description 05/19/2017 Conversion Encounter [facility] [address] [place] [address] Social History Tobacco Use Types Packs/Day Years [...] on filedocumented in this encounter Care Teams Accounts Receivable Clerk Relationship Specialty Start Date End Date Melinda Lombardo MD [address] [place] [address] PCP - General 05/13/17 11/18/22 documented as of this encounter
--- OUTSIDE RECORDS SUMMARY | 2024-12-10 11:06 | XMS_ITS | Encounter Summary ---
Author Organization [employer] Address 75 [facility] 7t [place] [address] Care Team Providers Care Tool Radial Drill Press Set Up Operator Name Role Phone Autumn Lainez HILARY Primary Care Provider [phone] Encounter Details Date Type Department Care Team (Latest Contact Info) Description 12/04/2024 Travel Social History Tobacco Use Types Packs/Day [...] Description 12/27/2024 9:00 AM EDT Clinical Support [facility] MEDICINE 230 [place] [address] Alissa Light, RODO 230 [place] [address] documented as of this encounter Visit Diagnoses Not on filedocumented in this encounter Additional Health Concerns Assessment Noted Time PHQ-9 Depression Total Score: 10 025 1:05 PM EST documented as of this encounter Care Teams Tool Radial Drill Press Set Up Operator Relationship Specialty Start Date End Date Autumn Lainez ANP 230 [place] [address] PCP - General Family Medicine 08/17/24 documented as of this encounter
--- OUTSIDE RECORDS SUMMARY | 2024-12-10 11:06 | XMS_ITS | Encounter Summary ---
Author Organization [employer] Address [address] [facility] [address] [place] [address] Care Team Providers Care Radio Engineer Name Role Phone Autumn Lainez HILARY Primary Care Provider [phone] Reason for Visit * Reason Comments RC Recovery Supports Encounter Details Date Type Department Care Team ([facility] st Contact Info) Description 12/03/2024 Patient Outreach [facility] MEDICINE [address] [place] [address] Jasvir Morgan Recovery Supports Social History Tobacco [...] encounter Progress Notes * Jasvir Morgan - 12/03/2024 2:43 PM EST I met with Al today. Setting: in person at [facility] Recovery Wellness Goals worked on: Social Stability Action taken/next steps: Attended alcohol and drug free activity Additional comments: Today, the participant Al Sonimudez was at the recovery center. Jasvir Morgan documented in this encounter Plan of Treatment Upcoming Encounters Date Type Department Care Team (Late st Contact Info) Description 12/27/2024 9:00 AM EDT Clinical Support [facility] MEDICINE [address] [place] [address] Alissa Light, RN [address] [place] [address] documented as of this encounter Visit Diagnoses Not on filedocumented in this encounter Additional Health Concerns Assessment Noted Time PHQ-9 Depression Total Score: 10 025 1:05 PM EST documented as of this encounter Care Teams Radio Engineer Relationship Specialty Start Date End Date Autumn Lainez ANP 230 [place] [address] PCP - General Family Medicine 08/17/24 documented as of this encounter
--- OUTSIDE RECORDS SUMMARY | 2024-12-10 11:06 | XMS_ITS | Encounter Summary ---
Author Organization [employer] Address 75 [facility] [address] [address] Care Team Providers Care Pick Up Driver Name Role Phone Migel Autumn RICHARD Primary Care Provider [phone] Encounter Details Date Type Department Care Team ([facility] st Contact Info) Description 12/04/2024 1:30 PM EST Office Visit [facility] MEDICINE 230 [place], [place] [phone] Rosario Sacnhez MD 230 [place], [place] [phone] Stress (Primary Dx); Recurrent major depressive disorder, in partial remission (CMS/HCC) Social History Tobacco Use Types [...] is your housing situation today? I have patriceanderson bautista 11/16/[address] you [...] Progress Notes * Rosario Sanchez MD - 12/04/2024 1:30 PM EST Subjective Patient ID: Al Putnam [...] [facility] MEDICINE [address] [place] [address] Alissa Light RN [address] [place] [address] documented as of this encounter Visit Diagnoses Diagnosis Stress- Primary Other psychological or physical stress, not elsewhere classified Recurrent major depressive disorder, in partial remission (CMS/HCC) documented in this encounter Additional Health Concerns Assessment Noted Time PHQ-9 Depression Total Score: 10 025 1:05 PM EST documented as of this encounter Care Teams Pick Up Driver Relationship Specialty Start Date End Date Autumn Lainez ANP [address] [place] [address] PCP - General Family Medicine 08/17/24 documented as of this encounter
--- OUTSIDE RECORDS SUMMARY | 2024-12-10 11:07 | XMS_ITS | Encounter Summary ---
Author Organization [employer] Address 75 [facility] 7t [place] [address] Care Team Providers Care Didactic Program In Dietetics Director Name Role Phone Autumn Lainez HILARY Primary Care Provider [phone] Reason for Visit * Reason Comments Acupuncture Encounter Details Date Type Department Care Team ([facility] Contact Info) Description 12/10/2024 10:30 AM EDT Office Visit [facility] MEDICINE 230 [place], [place] [phone] Arrived Social History Tobacco Use Types Packs/Day Years [...] Description 12/27/2024 9:00 AM EDT Clinical Support [facility] MEDICINE 230 [place] [address] Alissa Light RN 230 [place] [address] documented as of this encounter Visit Diagnoses Not on filedocumented in this encounter Additional Health Concerns Assessment Noted Time PHQ-9 Depression Total Score: 10 025 1:05 PM EST documented as of this encounter Care Teams Didactic Program In Dietetics Director Relationship Specialty Start Date End Date Autumn Lainez ANP 230 [place] [address] PCP - General Family Medicine 08/17/24 documented as of this encounter
--- OUTSIDE RECORDS SUMMARY | 2024-12-10 11:07 | XMS_ITS | Encounter Summary ---
Author Organization [employer] Address 75 [facility] 7[place] [address] Care Team Providers Care Diagnostics Tech Name Role Phone Autumn Lainez Primary Care Provider [phone] Reason for Visit * Reason Comments Pre-visit Planning SDOH Screening posit snehal and Tobacco screening negative Encounter Details Date Type Department Care Team ([facility] st Contact Info) Description 11/16/2024 Patient Outreach [facility] MEDICINE 230 [place] [address] Autumn Lainez ANP 230 [place] [address] Pre-visit Planning (SDOH Screening positive and Tobacco screening negative) Social History Tobacco Use Types Packs/Day Years [...] as of this encounter Progress Notes * Claudine Mota - 11/16/2024 12:44 PM EST CC Claudine Lockett placed successful outbound call to patient for pre-visit planning. Patient name and confirmed. Patient confirms appt date and time, and has transportation arrangements. Biggest concern for appointment at this time is no concerns. Patient advised to bring to appointment a photo id and insurance card. Appropriate screenings completed in anticipation of appointment. SDOH positive. Patient looking for assistance with transportation. Referral will be placed. documented in this encounter Plan of Treatment Upcoming Encounters Date Type Department Care Team (Late st Contact Info) Description 12/27/2024 9:00 AM EDT Clinical Support [facility] MEDICINE [address] [place] [address] Alissa Light, RN 230 [place] [address] documented as of this encounter Visit Diagnoses Not on filedocumented in this encounter Additional Health Concerns Assessment Noted Time PHQ-9 Depression Total Score: 16 024 2:08 PM EST documented as of this encounter Care Teams Diagnostics Tech Relationship Specialty Start Date End Date Autumn Lainez ANP 230 [place] [address] PCP - General Family Medicine 08/17/24 documented as of this encounter
--- OUTSIDE RECORDS SUMMARY | 2024-12-10 11:07 | XMS_ITS | Encounter Summary ---
Author Organization [employer] Address 75 [facility] 7t [place] [address] Care Team Providers Care Traffic Rate Clerk Name Role Phone Autumn Lainez HILARY Primary Care Provider [phone] Reason for Visit * Reason Comments RC Recovery Supports Encounter Details Date Type Department Care Team ([facility] st Contact Info) Description 12/06/2024 Patient Outreach [facility] MEDICINE 230 [place] [address] Jasvir Morgan Recovery Supports Social History Tobacco [...] encounter Progress Notes * Jasvir Morgan - 12/06/2024 10:12 AM EST I met with Al today. Setting: in person at [facility] Recovery Wellness Goals worked on: Social Stability Action taken/next steps: Attended alcohol and drug free activity Additional comments: Today, the participant Stefanie Mary was at the recovery center. Jasvir Morgan documented in this encounter Plan of Treatment Upcoming Encounters Date Type Department Care Team (Late st Contact Info) Description 12/27/2024 9:00 AM EDT Clinical Support [facility] MEDICINE [address] [place] [address] Alissa Light RN 230 [place] [address] documented as of this encounter Visit Diagnoses Not on filedocumented in this encounter Additional Health Concerns Assessment Noted Time PHQ-9 Depression Total Score: 10 025 1:05 PM EST documented as of this encounter Care Teams Traffic Rate Clerk Relationship Specialty Start Date End Date Autumn Lainez ANP [address] [place] [address] PCP - General Family Medicine 08/17/24 documented as of this encounter
--- OUTSIDE RECORDS SUMMARY | 2024-12-10 11:07 | XMS_ITS | Encounter Summary ---
Author Organization [employer] Address 75 [facility] 7t [place] [address] Care Team Providers Care Special Education Paraeducator Name Role Phone Autumn Lainez HILARY Primary Care Provider [phone] Reason for Visit * Reason Comments RC Recovery Supports Encounter Details Date Type Department Care Team ([facility] st Contact Info) Description 11/20/2024 Patient Outreach [facility] MEDICINE 230 [place] [address] Timur Prince Recovery Supports Social History Tobacco [...] encounter Progress Notes * Timur Prince - 11/20/2024 3:35 PM EST I met with Al today. Setting: in person at [facility] Recovery Wellness Goals worked on: Social Stability Action taken/next steps: Attended recovery support group and Offered person centered recovery support Additional comments: RSG. Timur Prince documented in this encounter Plan of Treatment Upcoming Encounters Date Type Department Care Team (Late st Contact Info) Description 12/27/2024 9:00 AM EDT Clinical Support [facility] MEDICINE [address] [place] [address] Alissa Light, RODO 230 [place] [address] documented as of this encounter Visit Diagnoses Not on filedocumented in this encounter Additional Health Concerns Assessment Noted Time PHQ-9 Depression Total Score: 16 024 2:08 PM EST documented as of this encounter Care Teams Special Education Paraeducator Relationship Specialty Start Date End Date Autumn Lainez ANP [address] [place] [address] PCP - General Family Medicine 08/17/24 documented as of this encounter
--- OUTSIDE RECORDS SUMMARY | 2024-12-10 11:07 | XMS_ITS | Encounter Summary ---
Author Organization [employer] Address 75 [facility] 7[place] [address] Care Team Providers Care Instructor Adjunct Surgical Technician Name Role Phone Autumn Lainez Primary Care Provider [phone] Reason for Visit * Reason Comments Med Refill Encounter Details Date Type Department Care Team ([facility] st Contact Info) Description 08/05/[address] [facility] MEDICINE [address] [place] [address] Autumn Lainez ANP 230 [place] [address] On pre-exposure prophylaxis for HIV Social History [...] Description 12/27/2024 9:00 AM EDT Clinical Support [facility] MEDICINE [address] [place] [address] Alissa Light, RODO [address] [place] [address] documented as of this encounter Visit Diagnoses Diagnosis On pre-exposure prophylaxis for HIV documented in this encounter Additional Health Concerns Assessment Noted Time PHQ-9 Depression Total Score: 6 05/16/20 24 2:59 PM EDT documented as of this encounter Care Teams Instructor Adjunct Surgical Technician Relationship Specialty Start Date End Date Autumn Lainez ANP 230 [place] [address] PCP - General Family Medicine 08/17/24 documented as of this encounter
--- OUTSIDE RECORDS SUMMARY | 2024-12-10 11:07 | XMS_ITS | Encounter Summary ---
Author Organization [employer] Address [address] [address] Care Team Providers Care Chief Load Dispatcher Name Role Phone Autumn Lainez Primary Care Provider [phone] Reason for Visit * Reason Comments Care Coordination C3 MARY KAY vera telephone call outreach Encounter Details Date Type Department Care Team (Latest Contact Info) Description 11/12/2024 Patient Outreach [facility] MEDICINE [address] [place] [address] Autumn Lainez ANP [address] [place] [address] Care Coordination (C3 MARY KAY Guillory telephone call outreach ) Social History Tobacco Use Types Packs/Day Years [...] encounter Progress Notes * Sydnee Guillory - 11/12/2024 12:03 PM EST CHW Sydnee Guillory placed outbound call to patient for follow up on SDOH needs. Patient's name, and address confirmed. Patient states is doing well. No further questions or concerns. CHW reinforced direct contact information for any additional questions or concerns and extended clinic hours on Mondays and Wednesdays, and Walk-In Urgent Care Located in [facility]. Patient provided with after-hours line for [facility], , which offer night time triage service and option to transfer to senior application programmer provider if needed. CHW discussed with the patient progress made in the CHW Program. Patient notified is being graduated from the Care Management-CHW Program. Patient was educated on how to receive SDOH services in the future. Patient agrees with the plan and will contact us if any future needs arise. documented in this encounter Plan of Treatment Upcoming Encounters Date Type Department Care Team (Late st Contact Info) Description 12/27/2024 9:00 AM EDT Clinical Support [facility] MEDICINE [address] [place] [address] Alissa Light, RN [address] [place] [address] documented as of this encounter Visit Diagnoses Not on filedocumented in this encounter Additional Health Concerns Assessment Noted Time PHQ-9 Depression Total Score: 16 024 2:08 PM EST documented as of this encounter Care Teams Chief Load Dispatcher Relationship Specialty Start Date End Date Autumn Lainez ANP [address] [place] [address] PCP - General Family Medicine 08/17/24 documented as of this encounter
--- OUTSIDE RECORDS SUMMARY | 2024-12-10 11:07 | XMS_ITS | Encounter Summary ---
Author Organization [facility] Address [address] [facility] [address] [place] [address] Care Team Providers Care Agency Operator Name Role Phone Autumn Lainez HILARY Primary Care Provider [phone] Encounter Details Date Type Department Care Team ([facility] st Contact Info) Description 06/19/2024 Community Care Management [facility] [address] [place] [address] Xander Arteaga [address] [place] [address] Social History Tobacco Use Types Packs/Day Years [...] Description 12/27/2024 9:00 AM EDT Clinical Support [facility] [address] [place] [address] Alissa Light, RODO [address] [place] [address] documented as of this encounter Visit Diagnoses Not on filedocumented in this encounter Additional Health Concerns Assessment Noted Time PHQ-9 Depression Total Score: 6 05/16/20 24 2:59 PM EDT documented as of this encounter Care Teams Agency Operator Relationship Specialty Start Date End Date Autumn Lainez ANP [address] [place] [address] PCP - General Family Medicine 08/17/24 documented as of this encounter
--- OUTSIDE RECORDS SUMMARY | 2024-12-10 11:07 | XMS_ITS | Encounter Summary ---
Author Organization [employer] Address [address] [facility] [address], [place] [address] Care Team Providers Care Marketing Support Coordinator Name Role Phone Autumn Lainez Primary Care Provider [phone] Encounter Details Date Type Department Care Team ([facility] st Contact Info) Description 11/12/2024 Orders Only [facility] [address] [place] [address] Autumn Lainez ANP [address] [place] [address] Social History Tobacco Use Types Packs/Day Years [...] Description 12/27/2024 9:00 AM EDT Clinical Support [facility] [address] [place] [address] Alissa Light, RODO [address] [place] [address] documented as of this encounter Procedures Procedure Name Priority Date/Time Associated Diagnosis Comments HIV 1 RNA, QUANTITATIVE REAL TIME PCR Routine 11/12/2024 9:19 AM EST HEPATIC FUNCTION PANEL Routine 11/12/2024 9:19 AM EST documented in this encounter Results * HIV-1 RNA, Quantitative, Real-Time PCR (11/12/2024 9:19 AM EST) HIV RNA PCR Qn Copies NOT DETECTED NOT DETECTED copies/mL [facility] HIV RNA PCR Qn Log Copies NOT DETECTED NOT DETECTED [facility] Comment:Result Units: Log co pies/mLThis test was performed using Real-Time Polymerase ChainReaction.Reportable Range: 20 copies/mL to 10,000,000 copies/mL(1.30 log copies/mL to 7.00 log copies/mL).THIS TEST WAS PERFORMED AT:[facility] [address] [id number] MILLER MD 11/12/2024 9:19 AM EST 11/12/2024 11:01 AM EST Autumn Lainez ANP LAB BLOOD ORDERABLES Final Resul t Performing Organization Address [facility] de Phone Number [facility] [address] [place] [phone] Hepatic Function Panel (11/12/2024 9:19 AM EST) Bilirubin, Total 0.3 0.0 - 1.0 mg/dL [facility] Bilirubin, Direct 0.1 0.0 - 0.5 mg/dL [facility] Aspartate Amino Transferase 22 5 - 37 U/L [facility] Alanine Aminotransferase 22 0 - 40 U/L [facility] Total Protein 7.5 6.5 - 8.0 g/dL [facility] Albumin Level 4.3 3.5 - 5.0 g/dL [facility] Alkaline Phosphatase 46 39 - 117 U/L [facility] 11/12/2024 9:19 AM EST 11/12/2024 11:01 AM EST Autumn Lainez ANP LAB BLOOD ORDERABLES Final Resul t Performing Organization Address [facility] de Phone Number [facility] [address] [place] [phone] documented in this encounter Visit Diagnoses Not on filedocumented in this encounter Additional Health Concerns Assessment Noted Time PHQ-9 Depression Total Score: 16 024 2:08 PM EST documented as of this encounter Care Teams Marketing Support Coordinator Relationship Specialty Start Date End Date Autumn Lainez ANP [address] [place] [phone] PCP - General Family Medicine 08/17/24 documented as of this encounter
--- OUTSIDE RECORDS SUMMARY | 2024-12-10 11:07 | XMS_ITS | Encounter Summary ---
Author Organization [email or web address] Address [address] [facility] [address] [place] [address] Care Team Providers Care Freezer Unloader Name Role Phone Autumn Lainez HILARY Primary Care Provider [phone] Encounter Details Date Type Department Care Team (Latest Contact Info) Description 11/12/2024 9:00 AM EST Clinical Support [facility]INE [address] [place] [address] Jordan Cagle, RODO [address] [place] [address] On pre-exposure prophylaxis for HIV Social History [...] Support [facility] [address] [place] [phone] Jordan Cagle RN [address] [place] [address] Scheduled Orders Name Type Priority Associated Diagnoses [...] documented as of this encounter Care Teams Freezer Unloader Relationship Specialty Start Date End Date Autumn Lainez ANP [address] [place] [phone] PCP - General Family Medicine 08/17/24 documented as of this encounter
--- OUTSIDE RECORDS SUMMARY | 2024-12-10 11:07 | XMS_ITS | Encounter Summary ---
Author Organization [employer] Address [address] [facility] [address] [address] Care Team Providers Care Roll Grinder Operator Name Role Phone Autumn Lainez HILARY Primary Care Provider [phone] Reason for Visit * Reason Comments [facility] Encounter Details Date Type Department Care Team ([facility] st Contact Info) Description 12/06/2024 Patient Outreach [facility] MEDICINE [address] [place], [place] [phone] Xander Arteaga [address] [place] [address] Recovery Supports Social History Tobacco Use Types [...] encounter Progress Notes * Xander Arteaga - 12/06/2024 3:50 PM EST I met with Al today. Setting: in person at [facility] Recovery Wellness Goals worked on: Physical Health/Mental [...] Description 12/27/2024 9:00 AM EDT Clinical Support [facility] [address] [place] [address] Alissa Light, RODO [address] [place] [address] documented as of this encounter Visit Diagnoses Not on filedocumented in this encounter Additional Health Concerns Assessment Noted Time PHQ-9 Depression Total Score: 10 025 1:05 PM EST documented as of this encounter Care Teams Roll Grinder Operator Relationship Specialty Start Date End Date Autumn Lainez ANP [address] [place] [address] PCP - General Family Medicine 08/17/24 documented as of this encounter
--- OUTSIDE RECORDS SUMMARY | 2024-12-10 11:07 | XMS_ITS | Encounter Summary ---
Author Organization [facility] Address [address] [facility] [address] [place] [address] Care Team Providers Care Edge Setter Name Role Phone Autumn Lainez HILARY Primary Care Provider [phone] Reason for Visit * Reason Comments [facility] Recovery Supp[facility] Encounter Details Date Type Department Care Team ([facility] st Contact Info) Description 11/12/2024 Patient Outreach [facility] MEDICINE [address] [place] [address] Jasvir Morgan Recovery Supports Social History Tobacco [...] encounter Progress Notes * Jasvir Morgan - 11/12/2024 11:59 PM EST I met with Al today. Setting: in person at [facility] Recovery Wellness Goals worked on: Social Stability Action taken/next steps: Offered person centered recovery support and Attended alcohol and drug free activity Additional comments: Today, the participant Al Putnam was at the recovery center. Jasvir Morgan documented in this encounter Plan of Treatment Upcoming Encounters Date Type Department Care Team (Late st Contact Info) Description 12/27/2024 9:00 AM EDT Clinical Support [facility] MEDICINE [address] [place] [address] Alissa Light RN [address] [place] [address] documented as of this encounter Visit Diagnoses Not on filedocumented in this encounter Additional Health Concerns Assessment Noted Time PHQ-9 Depression Total Score: 16 024 2:08 PM EST documented as of this encounter Care Teams Edge Setter Relationship Specialty Start Date End Date Autumn Lainez ANP [address] [place] [address] PCP - General Family Medicine 08/17/24 documented as of this encounter
--- OUTSIDE RECORDS SUMMARY | 2024-12-10 11:07 | XMS_ITS | Clinical Summary ---
Author Organization [employer] Address [address] [facility] 7[address] [place] [address] Care Team Providers Care Skein Winder Name Role Phone Autumn Lainez HILARY Primary Care Provider Allergies No known active allergies Medications * [...] per day. 30 tablet 1 10/09/19 25 Active hydrOXYzine pamoate (Vistaril) 25 MG capsuleIndicati ons:ANDRES (generalized anxiety disorder) Take 1 capsule (25 mg) by mouth if needed in the morning and at bedtime for anxiety. May take the 2 caps at bedtime. 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 Will image per pt request Pt aware of s/s to report parveen 08/23/2024 Assessment & Plan (08/23/2024 1:18 PM EST): Has a longitudinal ridges on right thumb. 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 -see image in chart. -recommended monitoring for any skin changes surrounding the thumb to return for reevaluation. . Bipolar affective disorder in remission 08/17/20 Recurrent major depressive disorder, in partial remission 05/16/2024 NADRES (generalized anxiety disorder) 05/16/2024 History of substance use disorder 05/16/2024 Stress 04/24/2024 Encounters * This document contains information received from the source organization and may not represent a complete record from that organization. Date Type Department Care Team Description 12/10/2024 10:30 AM EDT Office Visit [address] [address] Arrived 12/10/2024 9:30 AM EDT Office Visit [address] [address] Amee Salcido NP Skull asymmetry (Primary Dx) 12/10/2024 Travel 12/07/2024 Patient Outreach [address] [address] Xander Arteaga Recovery Supports 12/06/2024 10:15 AM EST Office Visit [address] [address] Socorro Rasmussen MD Stress (Primary Dx) 12/06/2024 Patient Outreach [address] [address] Xander Arteaga [facility] 12/06/2024 Patient Outreach [address] [address] Jasvir Morgan RC Recovery Supports 12/06/2024 Travel 12/05/2024 9:00 AM EST Office Visit [address] [address] Shawn Calzada MD Alcohol use disorder (Primary Dx); Cocaine use disorder (CMS/HCC) 12/05/2024 Travel 12/04/2024 1:30 PM EST Office Visit [address] [address] Rosario Sanchez MD Stress (Primary Dx); Recurrent major depressive disorder, in partial remission ([facility]/HCC) 12/04/2024 Patient Outreach [address] [address] Xander Arteaga [facility] 12/04/2024 Travel 12/04/2024 Patient Outreach [address] [address] Jasvir Morgan [facility] 12/03/2024 Patient Outreach [address] [address] Autumn Lainez ANP SDOH Concerns (C3CM/CHW EDITH Ervin SDOH f/u, PT1) 12/03/2024 Patient Outreach [address] [address] Jasvir Morgan [facility] 12/03/2024 Patient Outreach [address] [address] Xander Arteaga [facility] 11/30/2024 1:00 PM EST Office Visit [address] [address] Autumn Lainez ANP On pre-exposure prophylaxis for HIV (Primary Dx); ANDRES (generalized anxiety disorder) 11/30/2024 Travel 11/28/[address] [address] Maricarmen Estevez [place] chart prep 11/20/2024 Patient Outreach [address] [address] Timur Prince Recovery [facility] 11/16/2024 Patient Outreach [address] [address] Autumn Lainez ANP SDOH Concerns (C3CM/EIDTH Lawson SDOH_transportation ) 11/16/2024 Patient Outreach [address] [address] Autumn Lainez ANP Pre-visit Planning (SDOH Screening positive and Tobacco screening negative) 11/13/2024 Patient Outreach [address] [address] Sammy Tyson Recovery Supports 11/12/2024 9:00 AM EST Clinical Support [facility] [facility] [place] [phone] Alissa Light, RN On pre-exposure prophylaxis for HIV 11/12/2024 Patient Outreach [facility] [place], [place] [phone] Jasvir Morgan [facility] 11/12/2024 Patient Outreach [facility] [place] [phone] Autumn Lainez ANP Care Coordination (C3 CM-CHW Sydnee Guillory telephone call outreach ) 11/12/2024 Patient Outreach [facility] [place], [place] [phone] Autumn Lainez ANP Care Coordination (C3 CM-CHW Sydnee Guillory telephone call outreach) 11/12/2024 Orders Only [facility] [place] [address] Autunm Lainez ANP 11/12/2024 Travel 11/06/2024 1:45 PM EST Office Visit [facility] [facility] [place] [address] Rosario Sanchez MD ANDRES (generalized anxiety disorder) (Primary Dx); Bipolar affective disorder in remission ([facility]) 11/06/2024 Patient Outreach [facility] [phone] Xander Arteaga [facility] 11/06/2024 Travel 10/30/2024 Patient Outreach [facility] [place] [place] [phone] Timur Prince [facility] 10/29/2024 Patient Outreach [facility] [place] [address] Xander Arteaga Recovery Supp[facility] 10/29/2024 Patient Outreach [facility] [place] [phone] Autumn Lainez ANP Care Coordination (C3 CM-CHW Sydnee Guillory telephone call outreach) 10/26/2024 [address] Outreach [address] [place], [place] [phone] Sammy Tyson RC Recovery Supports 10/23/2024 2:15 PM EST Office Visit [place] [address] Rosario Sanchez MD Bipolar affective disorder in remission (CMS/HCC) (Primary Dx); Stress 10/23/2024 Travel 10/16/2024 Patient Outreach [facility] [place] [address] Xander Arteaga RC Recovery Supports 10/15/2024 Patient Outreach [place] [address] Jasvir Morgan RC Recovery Supports 10/12/2024 Patient Outreach [place] [address] Autumn Lainez ANP Care Coordination ([facility] Sydnee Guillory telephone all outreach) 10/10/2024 Orders Only [place] [address] Autumn Lainez ANP 10/09/2024 2:15 PM EST Office Visit [place] [address] Rosario Sanchez MD Bipolar affective disorder in remission (CMS/HCC) (Primary Dx) 10/09/2024 Patient Outreach [place] [address] Timur Prince Support Groups 10/09/2024 Travel 10/08/2024 Patient Outreach [place] [address] Jose Álvarez RC Recovery Supports 10/05/2024 Patient Outreach [facility] [place] [address] Jose Álvarez Recovery Supports 10/04/2024 10:00 AM EST Office Visit [place] [address] Socorro Rasmussen MD Stress (Primary Dx) 10/04/2024 Patient Outreach [place] [address] Xander Arteaga RC Recovery Supports 10/04/2024 Patient Outreach [facility] [place] [address] Jose Álvarez RC Recovery Supports 10/04/2024 Travel 10/02/2024 Patient Outreach [facility] [facility] [place] [address] Jasvir Morgan RC Recovery Supports 10/01/2024 Patient Outreach [facility] [place] [facility] [place] [address] Jasvir Morgan RC Recovery Supports 10/01/2024 Telephone [facility] [place] [facility] [place] [address] Delmy Mensah [place] November recall 10/01/2024 Patient Outreach [facility] [address] [facility] [place] [address] Sammy Tyson RC [facility] Supp[facility] 09/28/2024 Patient Outreach [address] [place] [address] Sammy Tyson RC Recovery Supports 09/27/2024 Patient Outreach [address] [address] Autumn Lainez ANP Care Coordination ([address] Sydnee Guillory telephone call outreach) 09/21/2024 Telephone [facility] [place] [address] Garcia Meza RN 09/20/2024 Patient Outreach [address] [address] Jose Álvarez Recovery Supports 09/19/2024 9:00 AM EST Office Visit [address] [place] [address] Shawn Calzada MD Alcohol use disorder (Primary Dx); Cocaine use disorder ([facility]/HCC) 09/19/2024 Travel 09/18/2024 Patient Outreach [facility] [place] [address] Xander Arteaga RC Recovery Supports 09/18/2024 Patient Outreach [place] [address] Jasvir Morgan RC Recovery Supports 09/17/2024 9:45 AM EST Office Visit [address] [address] Socorro Rasmussen MD Stress (Primary Dx) 09/17/2024 Patient Outreach [address] [address] Jasvir Morgan Recovery [facility] 09/17/2024 Travel 09/14/2024 9:00 AM EST Clinical Support [address] [address] Garcia eMza, RN On pre-exposure prophylaxis for HIV 09/14/2024 Patient Outreach [address] [address] Timur Prince 09/14/2024 Travel 09/13/2024 Patient Outreach [address] [address] Sammy Tyson Recovery Supp[facility] 09/12/2024 9:00 AM EST Office Visit [address] [address] Shawn Calzada MD Cocaine use disorder (CMS/HCC) (Primary Dx); Alcohol use disorder 09/12/2024 Travel 09/11/2024 Patient Outreach [address] [address] Sammy Tyson Recovery Supp[facility] 09/11/2024 Patient Outreach [address] [address] Jose Álvarez Recovery Supports from Last 3 Months Immunizations Name Administration [...] MMR 07/02/1998,06/02/1994 Meningococcal MCV4P ACYW-135 10/27/2007 Novel [id number], all formulations 10/29/2009 Pfizer Covid-19 Vaccine 12+ [...] Mass Index 32.44 12/10/2024 9:26 AM EDT Plan of Treatment Upcoming Encounters Date Type Department Care Team (Late st Contact Info) Description 12/27/2024 9:00 AM EDT Clinical Support [facility] [address] [place] [address] Alissa Light, RN [address] [place] [address] Health Maintenance Due Date Last Done Comments Family Planning (PISQ) 02/29/2008 Pneumococcal Vaccine: Pediatrics (0 to 5 Years) and At-Risk Patients (6 to 49) Years) (2 of 2 - PCV) 04/28/2019 04/28/2018 Depression Monitoring (PHQ-9) 05/30/2025 11/30/2024, 11/30/2024 Alcohol/Substance Use Screening 06/14/2025 06/14/2024 SDOH Screening 11/16/2025 11/16/2024 Depression Screening 11/30/2025 11/30/2024, 11/30/19 Tobacco Screening 12/10/2025 12/10/2024 DTaP/Tdap/Td Vaccines (9 - Td or Tdap) [...] 12/02/2020, Additional history exists HIV Screening Completed 11/12/2024, /0 05/2025, 09/14/2024, Additional history exists RSV under 20 [...] 9:19 AM EST HEPATIC FUNCTION PANEL Routine 9:19 AM EST HIV 1 RNA, QUANTITATIVE REAL TIME PCR [...] AM EST Lipid screening CHLAMYDIA/GONORRHEA - URINE ([place] DPH) Routine 09/14/2024 HEPATITIS C AB W/REFL TO HCV RNA, QN, PCR Routine 06/18/2024 9:30 AM EDT from Last 3 Months or Most Recently Relevant to Health Maintenance Results * POCT RAPID HIV SCREENING (11/12/2024 9:51 AM EST) Only the most recent of2 resultswithin the time period is included. Blood 11/12/2024 9:51 AM EST Narrative Alissa Light, RODO - 11/12/2024 9:51 AM EST negative Shawn Calzada MD POINT OF CARE TEST ENTER/EDIT OR DERABLES Final Result * HIV-1 RNA, Quantitative, Real-Time PCR (11/12/2024 9:19 AM EST) Only the most recent of3 resultswithin the time period is included. HIV RNA PCR Qn Copies NOT DETECTED NOT DETECTED copies/mL [facility] HIV RNA PCR Qn Log Copies NOT DETECTED NOT DETECTED [facility] Comment:Result Units: Log co pies/mLThis test was performed using Real-Time Polymerase ChainReaction.Reportable Range: 20 copies/mL to 10,000,000 copies/mL(1.30 log copies/mL to 7.00 log copies/mL).THIS TEST WAS PERFORMED AT:[employer] [place] [phone] MILLER MD 11/12/2024 9:19 AM EST 11/12/2024 11:01 AM EST Autumn Lainez [facility] LAB BLOOD ORDERABLES Final Resul t Performing Organization Address [facility] Number [facility] [address] [place] [phone] * Hepatic Function Panel (11/12/2024 9:19 AM EST) Bilirubin, Total 0.3 0.0 - 1.0 mg/dL [facility] Bilirubin, Direct 0.1 0.0 - 0.5 mg/dL [facility] Aspartate Amino Transferase 22 5 - 37 U/L [facility] Alanine Aminotransferase 22 0 - 40 U/L [facility] Total Protein 7.5 6.5 - 8.0 g/dL [facility] Albumin Level 4.3 3.5 - 5.0 g/dL [facility] Alkaline Phosphatase 46 39 - 117 U/L [facility] 11/12/2024 9:19 AM EST 11/12/2024 11:01 AM EST Autumn Lainez [facility] LAB BLOOD ORDERABLES Final Resul t Performing Organization Address [facility] Phone Number [facility] [address] [place] [phone] * Syphilis Screen (10/10/2024 2:10 PM EST) Syphilis Screen Nonreactive Nonreactive [facility] 10/10/2024 2:10 PM EST 10/10/2024 4:04 PM EST Autumn Lainez [facility] LAB BLOOD ORDERABLES Final Resul t [facility] [address] [place] [phone] * HIV-1/2 Antigen and Antibodies, Fourth Generation, with Reflexes (09/14/2024 8:12 AM EST) Pathologist [facility] HIV AB/AG Nonreactive Nonreactive [facility] Comment:HIV-1 p24 Ag and/or HIV-1/HIV-2 Ab not detected.A test result that is nonreactive does not exclude thepossibility of exposure to or infection with HIV-1 and/orHIV-2. Nonreactive results in this assay for individualswith prior exposure to HIV-1 and/or HIV-2 may be due toantigen and antibody levels that are below the limit ofdetection of this assay.[employer] HIV Ag/Ab Combo assay result andsupplemental assay results should be interpreted inconjunction with the patient's clinical presentation,history and other laboratory results. If the results areinconsistent with clinical evidence, additional testing issuggested to confirm the result. Blood Venous blood specimen / Unknown 09/14/2024 8:12 AM EST 09/14/2024 11:04 AM EST us Autumn RICHARD LAB BLOOD ORDERABLES Final Resul t [facility] [address] [place] [phone] [phone] * Hemoglobin A1c (09/14/2024 8:12 AM EST) Hemoglobin A1c 5.2 <6.0 % [facility] Comment:Hemoglobin A1C Refer ence Range Adults: 4.8 - 6.0 % Non diabetic: < 6.0 % Goal: < 7.0 %Additional Action Suggested: > 8.0 %Note: Hemoglobin A1c results are invalid for patients with abnormal amounts of HbF. Blood transfusions may impact the HbA1c concentration in the patient sample. Estimated Average Glucose 103 mg/dL [facility] Comment:eAG = Estimated ave rage glucose which is %A1C expressed asaverage glucose, using the formula of the O3I-KfmajgoWmzrjmi Glucose study (ADAG), Diabetes Care, Vol.31,#8,2007 Blood Venous blood specimen / Unknown 09/14/2024 8:12 AM EST 09/14/2024 11:04 AM EST Autumn Lainez [facility] LAB BLOOD ORDERABLES Final Resul t [facility] [address] [place] [phone] * (ABNORMAL) Lipid Panel, Standard (09/14/2024 8:12 AM EST) Triglycerides 69 <150 mg/dL [facility] Comment:Desirable Triglyceri de: less than 150 mg/dLBorderline High Triglyceride 150-199 mg/dLHigh Triglyceride: 200-499 mg/dLVery High Triglyceride: greater than or equal to 5OO mg/dL Cholesterol 190 <200 mg/dL [facility] Comment:Desirable Cholestero l: less than 200 mg/dLBorderline High Cholesterol: 200-239 mg/dLHigh Cholesterol: greater than 239 mg/dL LDL Cholesterol Calculated 127(H) <100 mg/dL [facility] Comment:Desirable LDL: less than 100 mg/dLNear Optimal/Above Optimal LDL: 110- 129 mg/dLBorderline High LDL: 130-159 mg/dLHigh LDL: 160-189 mg/dLVery High LDL: greater than or equal to 190 mg/dL HDL Cholesterol 50 >40 mg/dL [facility] Comment:Desirable HDL: great er than 40 mg/dL Note: This HDL assay may give artificially low results in patients with liver disease. Blood Venous blood specimen / Unknown 09/14/2024 8:12 AM EST 09/14/2024 11:04 AM EST Autumn Lainez [facility] BLOOD ORDERABLES Final Resul t [facility] [address] [place] [phone] * (ABNORMAL) Comprehensive Metabolic Panel (09/14/2024 8:12 AM EST) Sodium 140 135 - 145 mmol/L [facility] Potassium 4.1 3.3 - 5.1 mmol/L [facility] Chloride 106 96 - 108 mmol/L [facility] Carbon Dioxide 26 22 - 29 mmol/L [facility] Anion Gap 12 12 - 20 [facility] Urea Nitrogen (BUN) 22(H) 9 - 16 mg/dL [facility] Creatinine, Serum 0.84 0.5 - 1.4 mg/dL [facility] Estimated Glomerular Filt Rate >60 [facility] Comment:Chronic Kidney Disea se: Estimated GFR < 60 mL/min/[id number] Kidney Disease: Estimated GFR < 15 mL/min/1.73m2 Glucose 95 60 - 115 mg/dL [facility] Calcium 9.4 8.4 - 10.2 mg/dL [facility] Bilirubin, Total 0.5 0.0 - 1.0 mg/dL [facility] Aspartate Amino Transferase 22 5 - 37 U/L [facility] Alanine Aminotransferase 25 0 - 40 U/L [facility] Total Protein 7.5 6.5 - 8.0 g/dL [facility] Albumin Level 4.5 3.5 - 5.0 g/dL [facility] Alkaline Phosphatase 42 39 - 117 U/L [facility] Blood Venous blood specimen / Unknown 09/14/2024 8:12 AM EST 09/14/2024 11:04 AM EST Autumn Lainez ANP LAB BLOOD ORDERABLES Final Resul t Performing Organization Address City/[facility] Co de Phone Number [facility] [address] [place] [phone] * Chlamydia/Gonorrhea, Urine ([place] DPH) (09/14/2024) Chlamydia, Urine Negative Negative, Indeterminate, None Detected, Invalid, Specimen unsatisfactory for evaluation, Weakly Positive Gonorrhea, Urine Negative Negative, Indeterminate, None Detected, Invalid, Specimen unsatisfactory for evaluation, Weakly Positive Urine 09/14/[address] [facility] Provider MD LAB URINE ORDERABLES Echo l Result * Hepatitis C Antibody with Reflex to HCV, RNA, Quantitative, Real-Time PCR (06/18/2024 9:30 AM EDT) Hepatitis C Antibody Nonreactive Nonreactive [facility] Comment:Antibodies to HCV no t detected; does not exclude early acuteHCV infection. 06/18/2024 9:30 AM EDT 06/18/2024 11:33 AM EDT Autumn Lainez [facility] LAB BLOOD ORDERABLES Final Resul t Performing Organization Address [facility] Co de Phone Number [facility] [address] [place] [address] [phone] from Last 3 Months or Most Recently Relevant to Health Maintenance Insurance [facility] Care Teams Skein Winder Relationship Specialty Start Date End Date Autumn Lainez ANP [address] [place] [phone] PCP - General Family Medicine 08/17/24
--- OUTSIDE RECORDS SUMMARY | 2024-12-10 11:07 | XMS_ITS | Encounter Summary ---
Author Organization [employer] Address [address] [facility] [address] [address] Care Team Providers Care Triple Air Valve Tester Name Role Phone Autumn Lainez Primary Care Provider [phone] Reason for Visit * Reason Comments SDOH Concerns C3CM/CHW EDITH Mcclure SDOH_transportation Encounter Details Date Type Department Care Team ([facility] st Contact Info) Description 11/16/2024 Patient Outreach [facility] [address] [place] [address] Autumn Lainez ANP [address] [place] [address] SDOH Concerns (KIKA/EDITH Lawson SDOH_transportation ) Social History Tobacco Use Types Packs/Day [...] encounter Progress Notes * Jerson Weaver - 11/16/2024 12:59 PM EST CHW Jerson Weaver, placed outbound call to patient introducing herself from [facility] CM Department, in regards to offering CM Program for SDOH needs. Patient's name and was confirmed. Patient agrees to participate in program. CHW completed SDOH assessment. Patient I looking for assistance with transportation. CHW submitted PT1 for [facility] today. No other SDOH needs at this time. CHWreinforced direct contact information or any additional questions or concerns and extended clinic hours on Mondays and Wednesdays, and Walk-In Urgent Care Located in [facility] of [facility]. Patient provided with after-hours line for [facility], , which offer night time triage service and option to transfer to abalone diver provider if needed. Patient verbalizes understanding, and able to repeat back to mortgage or loan underwriter. A follow up call will be placed within 10 days, patient agrees with plan. documented in this encounter Plan of Treatment Upcoming Encounters Date Type Department Care Team (Late st Contact Info) Description 12/27/2024 9:00 AM EDT Clinical Support [facility] [address] [place] [address] Alissa Light, RODO [address] [place] [address] documented as of this encounter Visit Diagnoses Not on filedocumented in this encounter Additional Health Concerns Assessment Noted Time PHQ-9 Depression Total Score: 16 024 2:08 PM EST documented as of this encounter Care Teams Triple Air Valve Tester Relationship Specialty Start Date End Date Auutmn Lainez ANP [address] [place] [address] PCP - General Family Medicine 08/17/24 documented as of this encounter
--- OUTSIDE RECORDS SUMMARY | 2024-12-10 11:07 | XMS_ITS | Encounter Summary ---
Author Organization [employer] Address [address] [place] [address] Care Team Providers Care Downstairs Maid Name Role Phone Autumn Lainez HILARY Primary Care Provider [phone] Encounter Details Date Type Department Care Team [...] AM EDT Clinical Support [facility] [address] [place] [address] Alissa Light, RODO [address] [place] [address] documented as of this encounter Visit Diagnoses Not on filedocumented in this encounter Additional Health Concerns Assessment Noted Time PHQ-9 Depression Total Score: 16 024 2:08 PM EST documented as of this encounter Care Teams Downstairs Maid Relationship Specialty Start Date End Date Autumn Lainez ANP [address] [place] [address] PCP - General Family Medicine 08/17/24 documented as of this encounter
--- OUTSIDE RECORDS SUMMARY | 2024-12-10 11:07 | XMS_ITS | Encounter Summary ---
Author Organization [employer] Address [address] [facility] [address] [place] [address] Care Team Providers Care Food And Beverage Server Name Role Phone Migel Autumn RICHARD Primary Care Provider [phone] Reason for Visit * Reason Onset Date Comments chart prep 11/28/2024 Encounter Details Date Type Department Care Team ([facility] st Contact Info) Description 11/28/2024 Telephone [facility] MEDICINE [address] [place], [place] [phone] Maricarmen Estevez MA chart prep Social History Tobacco Use Types Packs/Day Years [...] AM EST documented as of this encounter Miscellaneous Notes * Telephone Encounter - Maricarmen Estevez MA - 11/28/2024 1:23 PM EST Chart Prep Labs: done Images: not applicable Vaccines due: no updates Referrals: closed Screenings: none Overdue care gaps: PHQ-9 documented in this encounter Plan of Treatment Upcoming Encounters Date Type Department Care Team (Late st Contact Info) Description 12/27/2024 9:00 AM EDT Clinical Support [facility] MEDICINE [address] [place] [address] Alissa Light, RODO [address] [place] [address] documented as of this encounter Visit Diagnoses Not on filedocumented in this encounter Additional Health Concerns Assessment Noted Time PHQ-9 Depression Total Score: 16 024 2:08 PM EST documented as of this encounter Care Teams Food And Beverage Server Relationship Specialty Start Date End Date Autumn Lainez ANP [address] [place] [id number] PCP - General Family Medicine 08/17/24 documented as of this encounter
--- OUTSIDE RECORDS SUMMARY | 2024-12-10 11:07 | XMS_ITS | Encounter Summary ---
Author Organization [employer] Address [address] [place] [address] [address], [place] [address] Care Team Providers Care Flame Planer Name Role Phone Autumn Lainez Primary Care Provider [phone] Reason for Visit * Reason Comments Acupuncture Encounter Details Date Type Department Care Team ([facility] Contact Info) Description 12/06/2024 10:15 AM EST Office Visit [facility] MEDICINE [address] [place] [address] Socorro Rasmussen MD [address] [place] [address] Stress (Primary Dx) Social History Tobacco Use Types [...] as of this encounter Progress Notes * Socorro Rasmussen MD - 12/06/2024 10:15 AM EST Subjective Patient ID: Al Putnam is [...] [facility] MEDICINE [address] [place] [address] Alissa Light RN [address] [place] [address] documented as of this encounter Visit Diagnoses Diagnosis Stress- Primary Other psychological or physical stress, not elsewhere classified documented in this encounter Additional Health Concerns Assessment Noted Time PHQ-9 Depression Total Score: 10 11/30/ 025 1:05 PM EST documented as of this encounter Care Teams Flame Planer Relationship Specialty Start Date End Date Autumn Lainez ANP [address] [place] [address] PCP - General Family Medicine 08/17/24 documented as of this encounter
--- OUTSIDE RECORDS SUMMARY | 2024-12-10 11:07 | XMS_ITS | Encounter Summary ---
Author Organization [employer] Address [address] [facility] 7t [place] [address] Care Team Providers Care Machine Made Shoe Unit Worker Name Role Phone Autumn Lainez HILARY Primary Care Provider [phone] Encounter Details Date Type Department Care Team (Latest Contact Info) Description 12/06/2024 Travel Social History Tobacco Use Types Packs/Day [...] Description 12/27/2024 9:00 AM EDT Clinical Support [facility] MEDICINE [address] [place] [address] Alissa Light, RODO [address] [place] [address] documented as of this encounter Visit Diagnoses Not on filedocumented in this encounter Additional Health Concerns Assessment Noted Time PHQ-9 Depression Total Score: 10 025 1:05 PM EST documented as of this encounter Care Teams Machine Made Shoe Unit Worker Relationship Specialty Start Date End Date Autumn Lainez ANP [address] [place] [address] PCP - General Family Medicine 08/17/24 documented as of this encounter
--- OUTSIDE RECORDS SUMMARY | 2024-12-10 11:07 | XMS_ITS | Encounter Summary ---
Author Organization [employer] Address [address] [facility] [address], [place] [address] Care Team Providers Care Dairy Associate Name Role Phone Autumn Lainez Primary Care Provider Reason for Visit * Reason Comments CHW - Office Visit Encounter Details Date Type Department Care Team ([facility] Contact Info) Description 11/30/2024 1:00 PM EST Office Visit [facility] MEDICINE [address] [place] [address] Autumn Lainez ANP [address] [place] [address] On pre-exposure prophylaxis for HIV (Primary Dx); ANDRES (generalized anxiety disorder) Social History Tobacco Use Types Packs/Day Years [...] Sign Reading Time Taken Comments Blood Pressure 121/70 11/30/2024 1:04 PM EST Pulse 76 11/30/2024 1:04 PM EST Temperature 37.1 ??C (98.8 ??F) 11/30/2024 1:04 PM ES T Respiratory Rate 14 11/30/2024 1:04 PM EST Oxygen Saturation 99% 11/30/2024 1:04 PM EST Inhaled Oxygen Concentration - - Weight 91.8 kg (202 lb 6.4 oz) 11/30/2024 1:04 P M EST Height - - Body Mass Index - - documented in this encounter Progress Notes * HILARY Vila - 11/30/2024 1:00 PM EST Subjective Patient ID: Al Putnam is a 29 y.o. male who presents for CHW - Office Visit. HPI PMH polysubstance use engaged with CRS services and maintaining sobriety, anxiety, bipolar On Apretude for PrEP Last injection Apretude 11/12/24 Getting acupuncture for anxiety and has appointment w/ psych 12/05/24. Engaged in therapy. Al is doing really well. He is trying to eat healthier and has joined the [employer] and plans to start going soon. He is trying to walk more. He wants to lose a little bit of weight. He is focusing on himself right now and so no new partners. He reports that the Apretude injection is going welldenies side effects and in terms of site reaction only has a little bit of soreness that last for aday or so. Non-smoker Review of Systems Constitutional: Negative for fatigue, fever and unexpected weight change. HENT: Negative for sore throat. Respiratory: Negative for chest tightness, shortness of breath and wheezing. Gastrointestinal: Negative for constipation. Endocrine: Negative for polydipsia, polyphagia and polyuria. Genitourinary: Negative for difficulty urinating and dysuria. Musculoskeletal: Negative for back pain. Skin: Negative for rash. Neurological: Negative for headaches. Objective BP 121/70 (BP Location: Left arm, Patient Position: Sitting, BP Cuff Size: Adult) Pulse76 Temp 98.8 ??F (37.1 ??C) (Temporal) Resp 14 Wt 202 lb 6.4 oz (91.8 kg) SpO2 99% Physical Exam Constitutional: General: He is not in acute distress. Appearance: Normal appearance. He is not ill-appearing. HENT: Head: Normocephalic and atraumatic. Eyes: General: No scleral icterus. Extraocular Movements: Extraocular movements intact. Pupils: Pupils are equal, round, and reactive to light. Cardiovascular: Rate and Rhythm: Normal rate and regular rhythm. Pulmonary: Effort: Pulmonary effort is normal. No accessory muscle usage or respiratory distress. Neurological: Mental Status: He is alert and oriented to person, place, and time. Gait: Gait normal. Psychiatric: Mood and Affect: Mood normal. Behavior: Behavior normal. Assessment/Plan Diagnoses and all orders for this visit: On pre-exposure prophylaxis for HIV Al is doing really well and likes the Apretude. He is tolerating well with no side effects. He is up-to-date with lab work and has next injection scheduled for January 10, 2025. Anxiety He is engaged with therapy and has psychiatry appointment next week. He would like to lose some weight. We discussed strategies to do this including increased exercise and continue trying to eat healthy and decrease sugary drink intake as well as snack food. I will plan to see him in 6 months unless something comes up and he needs to be seen sooner. documented in this encounter Plan of Treatment Upcoming Encounters Date Type Department Care Team (Late st Contact Info) Description 12/27/2024 9:00 AM EDT Clinical Support [facility] MEDICINE [address] [place] [address] Alissa Light RN [address] [place] [address] documented as of this encounter Visit Diagnoses Diagnosis On pre-exposure prophylaxis for HIV- Primary ANDRES (generalized anxiety disorder) Generalized anxiety disorder documented in this encounter Additional Health Concerns Assessment Noted Time PHQ-9 Depression Total Score: 10 025 1:05 PM EST documented as of this encounter Care Teams Dairy Associate Relationship Specialty Start Date End Date Autumn Lainez ANP [address] [place] [id number] PCP - General Family Medicine 08/17/24 documented as of this encounter
--- OUTSIDE RECORDS SUMMARY | 2024-12-10 11:07 | XMS_ITS | Encounter Summary ---
Author Organization [employer] Address [address] [address] Care Team Providers Care Underwriting Sales Representative Name Role Phone Autumn Lainez Primary Care Provider [phone] Reason for Visit * Reason Comments Care Coordination C3 MARY KAY vera telephone call outreach Encounter Details Date Type Department Care Team (Latest Contact Info) Description 11/12/2024 Patient Outreach [facility] MEDICINE [address] [place] [address] Autumn Lainez ANP [address] [place] [address] Care Coordination (C3 MARY KAY Guillory telephone [...] Progress Notes * Sydnee Guillory - 11/12/2024 11:47 AM EST CHW Sydnee Guillory placed outbound call to patient to follow up on SDOH needs. Patient's name, andaddress confirmed. CHW spoke to patient he filled out apartment applications and he has called to some apartments he has applications filled out at he still on the waiting list, Patient states is doing well. No further questions or concerns. CHW reinforced direct contact information or CM for any additional questions or concerns and extended clinic hours on Mondays and Wednesdays, and Walk-In Urgent Care Located in [facility] of [facility]. Patient provided with after-hours line for [facility], , which offer night time triage service and option to transfer to exploration engineer provider if needed. Patient verbalizes understanding, and able to repeat back to bid writer. A follow up call willbe placed within 10 days, patient agrees with plan. documented in this encounter Plan of Treatment Upcoming Encounters Date Type Department Care Team ([facility] Contact Info) Description 12/27/2024 9:00 AM EDT Clinical Support [facility] MEDICINE [address] [place] [address] Alissa Light, RODO [address] [place] [address] documented as of this encounter Visit Diagnoses Not on filedocumented in this encounter Additional Health Concerns Assessment Noted Time PHQ-9 Depression Total Score: 16 024 2:08 PM EST documented as of this encounter Care Teams Underwriting Sales Representative Relationship Specialty Start Date End Date Autumn Lainez ANP [address] [place] [address] PCP - General Family Medicine 08/17/24 documented as of this encounter
--- OUTSIDE RECORDS SUMMARY | 2024-12-10 11:07 | XMS_ITS | Encounter Summary ---
Author Organization [employer] Address [address] [facility] [address] [place] [address] Care Team Providers Care Psychology Technician Name Role Phone Migel Autumn RICHARD Primary Care Provider [phone] Reason for Visit * Reason Comments [facility] Encounter Details Date Type Department Care Team ([facility] st Contact Info) Description 11/13/2024 Patient Outreach [facility] MEDICINE [address] [place], [place] [phone] Sammy Tyson [address] [place] [address] [facility] Social History Tobacco Use [...] encounter Progress Notes * Sammy Tyson - 11/13/2024 2:50 PM EST I met with Al nichole. Setting: in person at [facility] Recovery Wellness Goals worked [...] Description 12/27/2024 9:00 AM EDT Clinical Support [facility] MEDICINE [address] [place] [address] Alissa Light, RODO [address] [place] [address] documented as of this encounter Visit Diagnoses Not on filedocumented in this encounter Additional Health Concerns Assessment Noted Time PHQ-9 Depression Total Score: 16 024 2:08 PM EST documented as of this encounter Care Teams Psychology Technician Relationship Specialty Start Date End Date Autumn Lainez ANP [address] [place] [address] PCP - General Family Medicine 08/17/24 documented as of this encounter
--- OUTSIDE RECORDS SUMMARY | 2024-12-10 11:07 | XMS_ITS | Encounter Summary ---
Author Organization [employer] Address [address] [facility] [address] 7t [place] [address] Care Team Providers Care Manufacturing Maintenance Mechanic Name Role Phone Autumn Lainez HILARY Primary Care Provider [phone] Encounter Details Date Type Department Care Team (Latest Contact Info) Description 12/10/2024 Travel Social History Tobacco Use Types Packs/Day [...] Description 12/27/2024 9:00 AM EDT Clinical Support [facility] MEDICINE [address] [place] [address] Alissa Light, RODO [address] [place] [address] documented as of this encounter Visit Diagnoses Not on filedocumented in this encounter Additional Health Concerns Assessment Noted Time PHQ-9 Depression Total Score: 10 025 1:05 PM EST documented as of this encounter Care Teams Manufacturing Maintenance Mechanic Relationship Specialty Start Date End Date Autumn Lainez ANP [address] [place] [address] PCP - General Family Medicine 08/17/24 documented as of this encounter
== END 2024-12-10 10:02 | disposition home or self-care (01) ==
LOC: HO.HHCX 10:01
PROVIDERS: Visit Provider Nurse Practitioner Family
DX: Q75.9 Congenital malformation of skull and face bones, unspecified (principal)
CPT/HCPCS: 70260

== ENCOUNTER → 2024-12-10 10:01 | Outpatient (BNV) | payer MEDICAID, SELFPAY | PROVIDERS: Visit Provider Radiology Diagnostic Radiology | DX: Q75.9 Congenital malformation of skull and face bones, unspecified (principal) | CPT/HCPCS: 70260 ==

== ENCOUNTER 2025-07-23 13:44 | Outpatient (REF) | payer MEDICAID, SELFPAY ==
[2025-07-23 16:57] LABS: Alanine Aminotransferase 33 U/L (0-40); Albumin Level 4.4 g/dL (3.5-5.0); Alkaline Phosphatase 48 U/L (39-117); Anion Gap 11 (12-20); Aspartate Amino Transferase 25 U/L (5-37); Blood Urea Nitrogen 17 mg/dL (9-16); Calcium 9.1 mg/dL (8.4-10.2); Carbon Dioxide 25 mmol/L (22-29); Chloride 108 mmol/L (96-108); Estimated Glomerular Filt Rate > 60; Potassium 4.1 mmol/L (3.3-5.1); Sodium 140 mmol/L (135-145); Total Protein 7.1 g/dL (6.5-8.0)
[2025-07-25 00:12] LABS: HIV RNA PCR Qn Copies NOT DETECTED copies/mL (NOT DETECTED); HIV RNA PCR Qn Log Copies NOT DETECTED (NOT DETECTED)
== END 2025-07-23 13:45 | disposition home or self-care (01) ==
LOC: HO.HHCL 13:44
PROVIDERS: Visit Provider Emergency Medicine
DX: Z11.4 Encounter for screening for human immunodeficiency virus [HIV] (principal); Z79.899 Other long term (current) drug therapy
CPT/HCPCS: 36415; 80053; 80076; 82248; 87536

== ENCOUNTER 2025-07-24 09:31 | Outpatient (REF) | payer MEDICAID, SELFPAY ==
--- OUTSIDE RECORDS SUMMARY | 2025-07-24 10:55 | XMS_ITS | Encounter Summary ---
Author Organization [facility] Address [address] [place] [address] Phone Care Team Providers Care Telephone Interceptor Operator Name Role Phone Melinda Lombardo MD Primary Care Provider Encounter Details Date Type Department Care Team (Late st Contact Info) Description 05/19/2017 Conversion Encounter [facility] [address] [place] [address] Social History Tobacco Use Types Packs/Day Years [...] on filedocumented in this encounter Care Teams Telephone Interceptor Operator Relationship Specialty Start Date End Date Melinda Lombardo MD [address] [place] [address] PCP - General 05/13/17 11/18/22 documented as of this encounter
--- OUTSIDE RECORDS SUMMARY | 2025-07-24 10:55 | XMS_ITS | Clinical Summary ---
Author Organization [facility] Address [address] [place] [address] Care Team Providers Care Forestry Engineer Name Role Phone Unavailable Primary Care Provider Unavailabl e Source Comments PLEASE NOTE, if this patient is a minor, it may be UNLAWFUL to discuss sensitive information that is contained in these records (such as FAMILY PLANNING, MENTAL HEALTH or SUBSTANCE ABUSE) with the minor patient's parent or other person without the patient's specific authorization.[facility] Medications ARIPiprazole (ABILIFY) 15 mg tablet Take 1 Tablet by mouth once daily for 30 days. 30 Tablet 06/13/2025 Active hydrOXYzine pamoate (VISTARIL) 25 mg capsule Take 1 Capsule by mouth 3 (three) times daily as needed for anxiety or sleep for up to 30 days TAKE 1 CAPSULE BY MOUTH TWICE DAILY IN THE MORNING AND AT BEDTIME NEEDED FOR ANXIETY OR MAY TAKE 2 CAPSULES EVERY DAY AT BEDTIME.. 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 P: Continue Abilify to 15 mg RTC 4 weeks Assessment & Plan (05/23/2025 1:46 PM EDT): Bipolar with psychotic features Vs Schizoaffective Bipolar type A: depressed irritable mood but improving, denies AVH, denies SI/HI but feels very frustrated with not making progress in his personal life. P: Increase Abilify to 50mg RTC 4 weeks Assessment & Plan (04/24/2025 7:55 PM EDT): Bipolar with psychotic features Vs Schizoaffective Bipolar type A: hyper verbal, depressed irritable mood, AH with commands but knows not to follow, fleeting SI no plan, crying spells P: Restart Abilify 10mg RTC 4 weeks ANDRES (generalized anxiety disorder) 05/16/2024 Assessment & Plan (06/13/2025 2:43 PM EDT): A: non compliant with medication. P: Continue Hydroxyzine Laura 25 mg PO morning and afternoon, may take 2 caps at HS for sleep Assessment & Plan (05/23/2025 1:48 PM EDT): A: improving P: Continue Hydroxyzine Laura 25 mg PO morning and afternoon, may take 2 caps at HS for sleep Assessment & Plan (04/18/2025 12:42 PM EDT): A: racing negative thoughts, feeling on edge, mood irritability, difficulties falling asleep. P: Restart Hydroxyzine Laura 25 mg PO morning and afternoon, may take 2 caps at HS for sleep History of substance use disorder 05/16/2024 Assessment & Plan (04/18/2025 12:42 PM EDT): In remission Stress 04/24/2024 Encounters Date Type Department Care Team Description 06/13/2025 2:00 PM EDT Behavioral Health Visit [facility] [address] [place] [address] [place] [phone] Shona Robledo APRN 05/16/2025 12:30 PM EDT Behavioral Health Visit [facility] [address] [place] [phone] Shona Robledo APRN from Last 3 Months Immunizations Immunization Administration Dates Next Due DTAP (DAPTACEL),5 PERTUSSIS ANTIGENS 07/02/1998 DTP 10/02/1994, 4,1993,08/02 Flu, Preservative Free 11/22/2023,12/02/2020 HEP B, PED/ADOL (VWYZUTB-M-BONT/RECOMBIVAX-PEDS) 1993,1993,1993 HPV, QUADRIVALENT 08/20/2013,04/17/2013,02/15/20 13 Hep A, Ped/adol, 2 Dose 04/03/2014 Hep A, adult 12/05/2015,06/07/2015 Hep B, Adult/Adol (XCOFSFF-M-VDCAQ/RECOMBIVAX-ADULT) 07/07/2015,06/07/2015 Hib (PRP-T) 06/02/1994, 4,1993,08/02 INFLUENZA, SEASONAL, INJECTABLE 07/28/20 16,07/01/2009,11/28/2008,10/27,10/12/2006 INFLUENZA, SEASONAL, INJECTA BLE, PRESERVATIVE FREE 06/28/2024 IPV (IPOL) 07/02/1998, 4,1993,08/02 Influenza Virus Vaccine (FLU MIST), Live Intranasal 06/03/2010 MENINGOCOCCAL MCV4P (MENACTRA) 10/27/2007 MMR (MMR II/Priorix) 07/02/1998,06/02/1994 Novel [id number], all formulations 10/29/2009 PNEUMOCOCCAL POLYSACCHARIDE PPV23 (Pneumovax 23) 04/28/2018 [facility] State Funded Flu Vaccine 09/06/2011 TDAP 05/09/2018,12/22/2015,12/10/2008 Td (adult),2 Lf tetanus toxo id (TDVAX), preservative free 03/25/2004 Varicella (Varivax), Live Vaccine 12/10/2008, Social History Tobacco Use Types Packs/Day Years Used Date Smoking Tobacco: Never Assessed Sex and Gender Information Value Date Recorded Sex Assigned at Male 03/25/2025 7:50 AM PDT Legal Sex Male 7:50 AM PDT Gender Identity Male 03/25/2025 7:50 AM PDT Sexual Orientation Not on file Plan of Treatment Health Maintenance Due Date Last Done Comments Anxiety Screening 1993 Depression Monitoring 1993 Tobacco Screening 1993 Hypertension Screening (#1) 2011 Alcohol and Drug Screen 10/03/2024 [id number] ( season) 2025 024, 11/22/2023 Imm-Influenza (#1) 2025 06/28/2024, 0 11/22/2023, 12/02/2020, Additional history exists Imm-DTaP/Tdap/Td (9 - Td or Tdap) 05/09/2028 05/09/2018, 12/22/2015, 12/10/2008, Additional history exists Imm-HPV Completed 08/20/2013, 04/02, 02/14/2013 Imm-Hepatitis B Completed 07/07/2015, 01/2015, 1993, Additional history exists Hepatitis C Screening Completed 06/18/2024 HIV Screening Completed 11/12/2024, 09/14/2024 Insurance [facility]
--- OUTSIDE RECORDS SUMMARY | 2025-07-24 10:55 | XMS_ITS | Clinical Summary ---
Author Organization [facility] Address [address] [place] [phone] Phone Care Team Providers Care Knocker Out Name Role Phone Unavailable Primary Care Provider [...] *Dental caries, No family history of *Sudden /NM under 55, , No family history of [...] 82 09/06/2011 12:00 AM EST Temperature 36.6 C (97.9 F) 04/15/2014 12:00 AM EDT Respiratory Rate - - Oxygen [...] 07/02/1998, Additional history exists Influenza Vaccines (#1) 2025 09/06/20, 06/03/2010, 07/01/2009, Additional history exists COVID-19 Vaccine ( season) 2025 HIB Vaccines Completed 06/02/1994, 12/03, 1993, Additional [...]
[2025-07-24 12:04] LABS: HIV Num 1 0.06 S/CO (0.00-0.99)
[2025-07-24 12:31] LABS: Alanine Aminotransferase 27 U/L (0-40); Albumin Level 4.4 g/dL (3.5-5.0); Alkaline Phosphatase 44 U/L (39-117); Aspartate Amino Transferase 19 U/L (5-37); Total Protein 6.8 g/dL (6.5-8.0)
[2025-07-25 16:58] LABS: HIV RNA PCR Qn Copies NOT DETECTED copies/mL (NOT DETECTED); HIV RNA PCR Qn Log Copies NOT DETECTED (NOT DETECTED)
== END 2025-07-24 09:32 | disposition home or self-care (01) ==
LOC: HO.HHCL 09:31
PROVIDERS: PCP Nurse Practitioner Primary Care; Visit Provider Nurse Practitioner Primary Care
DX: Z11.4 Encounter for screening for human immunodeficiency virus [HIV] (principal); Z79.899 Other long term (current) drug therapy
CPT/HCPCS: 36415; 80076; 87389; 87536

== ENCOUNTER 2025-08-20 11:41 | Outpatient (REF) | payer MEDICAID, SELFPAY ==
[2025-08-21 07:31] LABS: ~HepC Num1 0.13 S/CO (0.00-0.79); ~Hepatitis C Antibody Nonreactive (Nonreactive)
[2025-08-22 17:33] LABS: HIV RNA PCR Qn Copies NOT DETECTED copies/mL (NOT DETECTED); HIV RNA PCR Qn Log Copies NOT DETECTED (NOT DETECTED)
== END 2025-08-20 11:42 | disposition home or self-care (01) ==
LOC: HO.HHCL 11:41
PROVIDERS: PCP Nurse Practitioner Primary Care; Visit Provider Nurse Practitioner Primary Care
DX: Z11.59 Encounter for screening for other viral diseases (principal); Z11.4 Encounter for screening for human immunodeficiency virus [HIV]; Z79.899 Other long term (current) drug therapy
CPT/HCPCS: 36415; 86803; 87536